=== PATIENT | male | born 1955 | race Caucasian/White ===

== ENCOUNTER 2018-02-28 02:11 | Outpatient (CLI) | payer MEDICARE, MEDICAID, SELFPAY ==
[2018-02-28 11:15] LABS: Absolute Basophil Count 0.04 k/cumm (0.0-0.2); Absolute Eosinophil Count 0.11 k/cumm (0.0-0.7); Absolute Lymphocyte Count 1.34 k/cumm (1.2-3.4); Absolute Monocyte Count 0.47 k/cumm (0.11-0.7); Absolute Neutrophil Count 2.49 k/cumm (1.2-6.7); Basophils % 0.9; Eosinophils % 2.5; HCT 44.3 % (40.0-50.0); HGB 15.5 g/dL (13.5-17.5); Lymphocytes % 30.1; Mean Corpuscular Hemoglobin 32.7 pg (27.0-33.0); Mean Corpuscular Volume 93.5 fL (80-95); Mean Platelet Volume 9.8 fL (8.0-11.0); Monocytes % 10.6; Neutrophils % 55.9; Platelet Count 137 x1000/uL (130-400); RBC 4.74 m/cumm (4.50-6.00); RBC Distribution Width 13.4 % (11.8-14.1); White Blood Cell Count 4.45 k/cumm (4.4-10.8)
[2018-02-28 11:29] LABS: ALT 25 U/L (12-78); AST 17 U/L (15-37); Alkaline Phosphatase 88 U/L (46-116); Anion Gap 7.8 mmol/L (3-11); BUN 17 mg/dL (7-18); Bilirubin, Total 0.6 mg/dL (0.2-1.0); CO2 30.2 mmol/L (21.0-32.0); CREATININE 0.85 mg/dL (0.70-1.30); Calcium 9.4 mg/dL (8.5-10.1); Chloride 103 mmol/L (98-107); Glucose 88 mg/dL (70-100); Potassium 4.9 mmol/L (3.5-5.1); Sodium 141 mmol/L (136-145); Total Protein 7.3 g/dL (6.4-8.2)
== END 2018-02-28 02:31 ==
PROVIDERS: PCP Internal Medicine; Visit Provider Internal Medicine
DX: K35.80 Unspecified acute appendicitis (principal); E78.5 Hyperlipidemia, unspecified; Z86.19 Personal history of other infectious and parasitic diseases
CPT/HCPCS: 36415; 80053; 85025

== ENCOUNTER 2018-03-11 08:20 | Day surgery (SDC) | payer MEDICARE, MEDICAID, SELFPAY ==
--- NOTE | 2018-03-09 08:54 | POEE_ITS ---
History of Present Illness Chief Complaint: Progressive decreased vision, left eye Narrative: The patient is a 62-year old male who presented with complaints of progressive decreased vision in his left eye. This has been progressive over the past month, with significant difficulty with glare. On examination he was noted to have moderate nuclear and posterior subcapsular cataract of the left eye with best corrected vision of 20/50. The option of cataract surgery was offered to the patient and he wished to proceed. NOTE: The Chief Complaint, HPI, Past Medical History, Past Surgical History, Family History, Social History, Medications, and complete Ophthalmic Exam with detailed Assessment and Plan have already been documented in the patient's outpatient ophthalmic record and are not covered again in detail here. PFSH Family History Mother Depression Neoplasm Father Heart disease Hyperlipidemia Brother Depression Brother Diabetes Alcohol abuse Depression Medical History Nuclear sclerotic cataract of left eye (Acute) Posterior subcapsular age-related cataract of left eye (Acute) Social History household members: other details: SELF pets and animals: Yes pets and animals: dog(s) frequency: 5-6 times per week duration: 60-90 minutes/day Smoking/Tobacco Use Status: Former Tobacco Use alcohol intake: never substance use type: does not use chirag/confucianist: Gnosticist Surgical History Appendectomy (06/12/16) Meds Home Medications Medication Instructions Recorded Confirmed Type Unknown [No Known Home Meds] 02/27/18 02/27/18 History Allergies Allergy/AdvReac Type Severity Reaction Status Date / Time Penicillins Allergy Intermediate Unverified 03/06/18 14:43 Exam OCULAR EXAM:: Visual acuity at distance: Corrected to 20/20 right eye, 20/50 left eye. Pupils: Pupils equal, round, and reactive without afferent pupillary defect IOP: 10 OU Extraocular Motility: Normal Pertinent Slit Lamp Findings: Significant for pupils dilating to 7 mm OU. 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 A 2+ nuclear cataract is present OU. Trace posterior subcapsular cataract OD. 2+ posterior subcapsular cataract OS Dilated Funduscopic Examination: Disc cupping is 0.1 OU with drusen and irregularity. The retinal vasculature is normal. The optic nerves have good perfusion and normal color. The retinal vasculature is normal without significant tortuosity or abnormality. The maculas are normal in appearance with normal contour and foveal reflex appropriate for age. The peripheral retina and vitreous are normal. BRIGHTNESS ACUITY TESTING (BAT):: Off left eye 20/50 Low: 20/60 Medium: 20/40 High: 20/125 Assessment and Plan (1) Posterior subcapsular age-related cataract of left eye: Current visit: No Status: Acute Assessment: Visually significant cataract, left eye. Plan: Cataract extraction with intraocular lens implantation, left eye (2) Nuclear sclerotic cataract of left eye: Current visit: No Status: Acute Assessment: Visually significant cataract, left eye. Plan: Cataract extraction with intraocular lens implantation, left eye Note: NOTE:: The details of the planned surgery, including the risks, indications, limitations,expectations,outcome and possible complications were explained to the patient. The patient understands the complications including, but not limited to: infection, hemorrhage, posterior dislocation of the lens or nuclear fragments which may require the intervention of a vitreoretinal surgeon, possible loss of the eye, or from anesthetic complications. The patient has been made aware of the option of not having surgery, that vision following surgery may not be equal to that prior to surgery, and that the planned surgery may not achieve the intended results. Following this discussion, which the patient appeared to understand, the patient wishes to proceed with cataract surgery with lens implantation of the affected eye to improve and maximize vision.
[2018-03-11 08:43] VITALS: BP 157/88; PULSE 66; RESP 16; TEMP 35.6; O2SAT 99
[2018-03-11] MEDS: Lidocaine 2% Jelly 6 ML SYR (10:30)
[2018-03-11] MEDS: Povidone-Iodine Ophth 30 ML BTL ×2 (10:30→10:53)
[2018-03-11] MEDS: Lidocaine 2% Pres-Free 5 ML VIAL (10:34)
[2018-03-11] MEDS: Balanced Salt Soln.-PLUS 500 ML BAG (10:35)
--- NOTE | 2018-03-11 10:58 | W.PM.DSUDISC ---
Discharge Plan Discharge Details Attending Provider: Caleb Peres Primary Care Provider: Noemi Walden Home Meds and New Rx's Prescriptions: No Action No Known Home Meds RF: 0 Discharge Instructions Stand Alone Forms: Post-op Topical Cataract, Chela Spivey (DSU) DS: Diagnosis Discharge Diagnosis (1) Posterior subcapsular age-related cataract of left eye: Status: Resolved (2) Nuclear sclerotic cataract of left eye: Status: Resolved (3) Status post cataract extraction and insertion of intraocular lens of left eye: Status: Acute
--- NOTE | 2018-03-11 10:59 | W.PM.OP ---
Date of service: 03/11/18 Time of Service: 10:59 Operative Note DATE OF PROCEDURE: 03/11/18 PRE-OP DIAGNOSIS: Cataract, left eye POST-OP DIAGNOSIS: same PROCEDURE: Cataract extraction using phacoemulsification with intraocular lens implant, left eye SURGEON: Caleb Peres ANESTHESIA: MAC and local (sub-tenon's anesthetic infiltration) PATHOLOGY: none sent COMPLICATIONS: None Patient was transported to: same day Patient's condition: stable Implants: Richie and Richie Vision / [employer] Tecnis [id number] Indications: Progressive decreased vision due to cataract, left eye Procedure Description: CATARACT SURGERY OPERATIVE REPORT PREOPERATIVE DIAGNOSIS: Nuclear/cortical/posterior subcapsular cataract, left eye, symptomatic POSTOPERATIVE DIAGNOSIS: Same OPERATION: Cataract extraction using phacoemulsification with posterior chamber intraocular lens implant, left eye. IOL: IOL Administrative Resident/Model: J[employer]J Vision / KAIT Tecnis ZCB00 IOL Power: + 21.0 diopters IOL Serial Number: [id number] Optic Diameter: 6.0mm Haptic/Overall Diameter: 13.0mm PHACO INFO: [employer] Solutionsurion Vision System with OZil and Active Fluidics Cumulative Dispersed Energy (CDE): 8.92 seconds SURGEON: Caleb Peres MD, JERALD ANESTHESIA: Monitored Anesthesia Care (MAC), with local sub-tenon's anesthetic infiltration COMPLICATIONS: None SPECIMENS: None INDICATIONS FOR PROCEDURE: The patient is a 62-year-old gentleman with history of optic disc drusen who has developed progressive decreased vision in his left eye. He was noted to have significant nuclear cortical and posterior subcapsular cataract with best corrected vision of 20/50 in the left eye. The option of cataract surgery was offered to the patient and he wished to proceed. PROCEDURE: The correct surgical eye was identified and marked as the left eye and the pupil was dilated in the preoperative area using mydriatics, cycloplegics, and NSAIDS (except in aspirin allergic patients). The dilated pupil size was 8.0 mm. Oral sedation was administered in the form of an Imprimis MKO Melt (midazolam 3mg/ketamine 25mg/ondansetron 2mg) x 2. The patient was brought to the operating room where cardiopulmonary monitoring was instituted and surgical time-out was performed, confirming the correct operative eye and IOL power. Topical anesthesia was administered and ophthalmic povidone-iodine 5% was instilled into the conjunctival fornices. Lidocaine gel was applied to the cornea and the iron-ocular area was prepped with Betadine 10% solution and draped in the usual sterile fashion for intraocular surgery. Steri-strips were used to cover the lashes and lid margins and an adhesive eye drape was placed. Care was taken to isolate the lashes and lid margins under the Steri-strips and adhesive eye drape. A lid speculum was placed between the lids of the operative eye and the Oliver-Liane operating microscope was maneuvered into position. Cuauhtemoc scissors were then used to make a conjunctival buttonhole approximately 6mm posterior to the limbus in the inferonasal quadrant. Blunt dissection was carried out to expose bare sclera, and a blunt-tipped sub-tenon?s anesthesia cannula was introduced and passed posteriorly along the globe where non-preserved plain lidocaine was injected into posterior sub-Tenon?s space. A sideport knife was used to make a paracentesis port at the 12:00 postion and the anterior chamber was filled with Healon GV. A 2.4mm keratome knife was used to create a half-thickness groove at the limbus and then to construct a three-plane near-clear corneal tunnel extending 2.0mm into clear cornea at the 3:00 position. A flap was raised on the anterior capsule and capsulorhexis forceps were used to complete a continuous curvilinear capsulorhexis of 6.0 mm. Balanced salt solution was then used to perform cortical cleaving hydrodissection and nuclear hydrodelineation until the lens could be freely rotated within the capsular bag. The lens nucleus was then disassembled and removed within the capsular bag and iris plane using phacoemulsification. Residual cortical material was removed using the 45-degree angled silicone I/A tip with 0.3mm port. The posterior capsule was carefully polished to remove as much residual lens epithelial cells as safely possible. The capsular bag was then inflated and the anterior chamber deepened with viscoelastic. The lens implant described above was inserted into the capsular bag using the KAIT Seibert Injector. A Kuglen hook was used to dial the IOL into position. Residual viscoelastic was then removed first from posterior to the IOL, then from the anterior chamber using the I/A handpiece. The lens implant was noted to center nicely within the capsular bag. The incisions were stromally hydrated, and the anterior chamber was reformed using BSS. Then 0.4cc of moxifloxacin 1.5mg/ml were injected into the capsular bag and anterior chamber. The incisions were checked with a Weck spear and found to be secure. Several drops of ophthalmic povidone-iodine 5% were then applied to the eye followed by two drops of Imprimis combination moxifloxacin/dexamethasone solution. The drapes were removed and a clear plastic protective eye shield was placed over the eye. The patient was then returned to Same Day Surgery in stable condition.
[2018-03-11 11:20] VITALS: BP 124/76; PULSE 70; RESP 16; TEMP 35.8; O2SAT 93
== END 2018-03-11 11:35 | disposition home or self-care (01) ==
LOC: SUR 08:20
PROVIDERS: PCP Internal Medicine; Visit Provider Ophthalmology
PROC: (CPT 66984; principal; 2018-03-11 11:30)
DX: H25.812 Combined forms of age-related cataract, left eye (principal); I10 Essential (primary) hypertension
CPT/HCPCS: 66984; V2632

== ENCOUNTER 2018-03-25 08:10 | Day surgery (SDC) | payer MEDICARE, MEDICAID, SELFPAY ==
--- NOTE | 2018-03-24 11:14 | W.PIPPEYE ---
History of Present Illness Chief Complaint: Progressive decreased vision, right eye Narrative: The patient is a 62-year-old male with history of progressive decreased vision in both eyes at both distance and near, left eye worse than right. He notes significant difficulty with glare. He has a history of optic disc drusen. On examination he was noted to have moderate bilateral nuclear cataracts with mild posterior subcapsular cataract of the right eye. A 2+ posterior subcapsular cataract of the left eye was present. He underwent cataract surgery in the left eye on 03/11/2018. Postoperatively, he has regained uncorrected visual acuity of 20/20 in the left eye. He now presents for cataract surgery in the right eye. NOTE: The Chief Complaint, HPI, Past Medical History, Past Surgical History, Family History, Social History, Medications, and complete Ophthalmic Exam with detailed Assessment and Plan have already been documented in the patient's outpatient ophthalmic record and are not covered again in detail here. 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, left eye (Chronic) Social History household members: other details: SELF pets and animals: Yes pets and animals: dog(s) frequency: 5-6 times per week duration: 60-90 minutes/day Smoking/Tobacco Use Status: Former Tobacco Use alcohol intake: never substance use type: does not use chirag/gnosticist: Zoroastrianism Surgical History Status post cataract extraction and insertion of intraocular lens of left eye (Chronic 03/11/18) Appendectomy (06/12/16) Meds Allergies Allergy/AdvReac Type Severity Reaction Status Date / Time Penicillins Allergy Intermediate Unverified 03/11/18 08:41 Exam OCULAR EXAM:: Visual acuity at distance: Corrected visual acuity 20/20 right eye, 20/20 left eye. Pupils: Pupils equal, round, and reactive without afferent pupillary defect IOP: 10 OU Extraocular Motility: Normal Pertinent Slit Lamp Findings: Significant for corneal verticillata OU. Pupils dilate to 7 mm OU. 2+ nuclear cataract with trace posterior subcapsular cataract OD. In the left eye, there is a well-positioned PCIOL with trace residual posterior subcapsular haze. Dilated Funduscopic Examination: Disc cupping is 0.1 OU with an irregular margin and buried drusen. The optic disc color is normal. The optic nerves have good perfusion and normal color. The retinal vasculature is normal without significant tortuosity or abnormality. The maculas are normal in appearance with normal contour and foveal reflex appropriate for age. The peripheral retina and vitreous are normal. BRIGHTNESS ACUITY TESTING (BAT):: Off right eye 20/20 Low: 20/20 Medium: 20/20 High: 20/20 Assessment and Plan (1) Posterior subcapsular age-related cataract, right eye: Current visit: No Status: Acute Assessment: Visually significant cataract, right eye. Plan: Cataract extraction with intraocular lens implantation, right eye (2) Nuclear sclerotic cataract of right eye: Current visit: No Status: Acute Assessment: Visually significant cataract, right eye. Plan: Cataract extraction with intraocular lens implantation, right eye Note: NOTE:: The details of the planned surgery, including the risks, indications,limitations,expectations,outcome and possible complications were explained to the patient. The patient understands the complications including, but not limited to: infection, hemorrhage, posterior dislocation of the lens or nuclear fragments which may require the intervention of a vitreoretinal surgeon, possible loss of the eye, or from anesthetic complications. The patient has been made aware of the option of not having surgery, that vision following surgery may not be equal to that prior to surgery, and that the planned surgery may not achieve the intended results. Following this discussion, which the patient appeared to understand, the patient wishes to proceed with cataract surgery with lens implantation of the affected eye to improve and maximize vision.
--- NOTE | 2018-03-24 11:23 | POEE_ITS ---
History of Present Illness Chief Complaint: Progressive decreased vision, right eye Narrative: The patient is a 62-year-old male with history of progressive decreased vision in both eyes at both distance and near, left eye worse than right. He notes significant difficulty with glare. He has a history of optic disc drusen. On examination he was noted to have moderate bilateral nuclear cataracts with mild posterior subcapsular cataract of the right eye. A 2+ posterior subcapsular cataract of the left eye was present. He underwent cataract surgery in the left eye on 03/11/2018. Postoperatively, he has regained uncorrected visual acuity of 20/20 in the left eye. He now presents for cataract surgery in the right eye. NOTE: The Chief Complaint, HPI, Past Medical History, Past Surgical History, Family History, Social History, Medications, and complete Ophthalmic Exam with detailed Assessment and Plan have already been documented in the patient's outpatient ophthalmic record and are not covered again in detail here. 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, left eye (Chronic) Social History household members: other details: SELF pets and animals: Yes pets and animals: dog(s) frequency: 5-6 times per week duration: 60-90 minutes/day Smoking/Tobacco Use Status: Former Tobacco Use alcohol intake: never substance use type: does not use chirag/jain: Hindu Surgical History Status post cataract extraction and insertion of intraocular lens of left eye ( Chronic 03/11/18) Appendectomy (06/12/16) Meds Allergies Allergy/AdvReac Type Severity Reaction Status Date / Time Penicillins Allergy Intermediate Unverified 03/11/18 08:41 Exam OCULAR EXAM:: Visual acuity at distance: Corrected visual acuity 20/20 right eye , 20/20 left eye. Pupils: Pupils equal, round, and reactive without afferent pupillary defect IOP: 10 OU Extraocular Motility: Normal Pertinent Slit Lamp Findings: Significant for corneal verticillata OU. Pupils dilate to 7 mm OU. 2+ nuclear cataract with trace posterior subcapsular cataract OD. In the left eye, there is a well-positioned PCIOL with trace residual posterior subcapsular haze. Dilated Funduscopic Examination: Disc cupping is 0.1 OU with an irregular margin and buried drusen. The optic disc color is normal. The optic nerves have good perfusion and normal color. The retinal vasculature is normal without significant tortuosity or abnormality. The maculas are normal in appearance with normal contour and foveal reflex appropriate for age. The peripheral retina and vitreous are normal. BRIGHTNESS ACUITY TESTING (BAT):: Off right eye 20/20 Low: 20/20 Medium: 20/20 High: 20/20 Assessment and Plan (1) Posterior subcapsular age-related cataract, right eye: Current visit: No Status: Acute Assessment: Visually significant cataract, right eye. Plan: Cataract extraction with intraocular lens implantation, right eye (2) Nuclear sclerotic cataract of right eye: Current visit: No Status: Acute Assessment: Visually significant cataract, right eye. Plan: Cataract extraction with intraocular lens implantation, right eye Note: NOTE:: The details of the planned surgery, including the risks, indications, limitations,expectations,outcome and possible complications were explained to the patient. The patient understands the complications including, but not limited to: infection, hemorrhage, posterior dislocation of the lens or nuclear fragments which may require the intervention of a vitreoretinal surgeon, possible loss of the eye, or from anesthetic complications. The patient has been made aware of the option of not having surgery, that vision following surgery may not be equal to that prior to surgery, and that the planned surgery may not achieve the intended results. Following this discussion, which the patient appeared to understand, the patient wishes to proceed with cataract surgery with lens implantation of the affected eye to improve and maximize vision.
[2018-03-25 08:45] VITALS: BP 135/85; PULSE 56; RESP 17; TEMP 36.5; O2SAT 97
--- NOTE | 2018-03-25 09:47 | W.PM.DSUDISC ---
Discharge Plan Discharge Details Attending Provider: Caleb Peres Primary Care Provider: Noemi Walden Discharge Instructions Stand Alone Forms: Post-op Topical Cataract, Chela Spivey (DSU) DS: Diagnosis Discharge Diagnosis (1) Posterior subcapsular age-related cataract, right eye: Status: Resolved (2) Nuclear sclerotic cataract of right eye: Status: Resolved (3) Status post cataract extraction and insertion of intraocular lens of right eye: Status: Chronic
[2018-03-25] MEDS: Lidocaine 2% Jelly 6 ML SYR (10:06)
[2018-03-25] MEDS: Balanced Salt Soln.-PLUS 500 ML BAG (10:10)
[2018-03-25] MEDS: Lidocaine 1% Pres-Free 5 ML VIAL (10:10)
[2018-03-25] MEDS: Povidone-Iodine Ophth 30 ML BTL (10:29)
--- NOTE | 2018-03-25 10:35 | W.PM.OP ---
Date of service: 03/25/18 Time of Service: 10:35 Operative Note DATE OF PROCEDURE: 03/25/18 PRE-OP DIAGNOSIS: Cataract, right eye POST-OP DIAGNOSIS: same SURGEON: Caleb Peres ANESTHESIA: MAC and local (sub-tenon's anesthetic infiltration) PATHOLOGY: none sent COMPLICATIONS: None Patient was transported to: same day Patient's condition: stable Implants: Richie [employer] Richie Vision / [employer] Tecnis ZCB00 Indications: Progressive decreased vision due to cataract, right eye Procedure Description: CATARACT SURGERY OPERATIVE REPORT PREOPERATIVE DIAGNOSIS: Nuclear/cortical cataract, right POSTOPERATIVE DIAGNOSIS: Same OPERATION: Cataract extraction using phacoemulsification with posterior chamber intraocular lens implant, right eye. IOL: IOL Guide Visitor/Model: J[employer]J Vision / KAIT Tecnis ZCB00 IOL Power: +21.0 diopters IOL Serial Number: [id number] Optic Diameter: 6.0mm Haptic/Overall Diameter: 13.0mm PHACO INFO: [employer] Vision System with OZil and Active Fluidics Cumulative Dispersed Energy (CDE): 5.12 seconds SURGEON: Caleb Peres MD, JERALD ANESTHESIA: Monitored Anesthesia Care (MAC), with local sub-tenon's anesthetic infiltration COMPLICATIONS: None SPECIMENS: None INDICATIONS FOR PROCEDURE: The patient is a 62-year-old male with history of optic disc drusen who developed bilateral nuclear and posterior subcapsular cataract. He has already undergone cataract surgery in the left eye and is doing well postoperatively. He now presents for cataract surgery of the right eye. PROCEDURE: The correct surgical eye was identified and marked as the right eye and the pupil was dilated in the preoperative area using mydriatics, cycloplegics, and NSAIDS (except in aspirin allergic patients). The dilated pupil size was 8.0 mm. Oral sedation was administered in the form of an Imprimis MKO Melt (midazolam 3mg/ketamine 25mg/ondansetron 2mg). The patient was brought to the operating room where cardiopulmonary monitoring was instituted and surgical time-out was performed, confirming the correct operative eye and IOL power. Topical anesthesia was administered and ophthalmic povidone-iodine 5% was instilled into the conjunctival fornices. Lidocaine gel was applied to the cornea and the iron-ocular area was prepped with Betadine 10% solution and draped in the usual sterile fashion for intraocular surgery. Steri-strips were used to cover the lashes and lid margins and an adhesive eye drape was placed. Care was taken to isolate the lashes and lid margins under the Steri-strips and adhesive eye drape. A lid speculum was placed between the lids of the operative eye and the Oliver-Liane operating microscope was maneuvered into position. Cuauhtemoc scissors were then used to make a conjunctival buttonhole approximately 6mm posterior to the limbus in the inferonasal quadrant. Blunt dissection was carried out to expose bare sclera, and a blunt-tipped sub-tenon?s anesthesia cannula was introduced and passed posteriorly along the globe where non-preserved plain lidocaine was injected into posterior sub-Tenon?s space. A sideport knife was used to make a paracentesis port at the 7:00 postion and the anterior chamber was filled with Healon GV. A 2.4mm keratome knife was used to create a half-thickness groove at the limbus and then to construct a three-plane near-clear corneal tunnel extending 2.0mm into clear cornea at the 10:00 position. A flap was raised on the anterior capsule and capsulorhexis forceps were used to complete a continuous curvilinear capsulorhexis of 5.5 mm. Balanced salt solution was then used to perform cortical cleaving hydrodissection and nuclear hydrodelineation until the lens could be freely rotated within the capsular bag. The lens nucleus was then disassembled and removed within the capsular bag and iris plane using phacoemulsification. Residual cortical material was removed using the 45-degree angled silicone I/A tip with 0.3mm port. The posterior capsule was carefully polished to remove as much residual lens epithelial cells as safely possible. The capsular bag was then inflated and the anterior chamber deepened with viscoelastic. The lens implant described above was inserted into the capsular bag using the KAIT Inupiat Injector. A Kuglen hook was used to dial the IOL into position. Residual viscoelastic was then removed first from posterior to the IOL, then from the anterior chamber using the I/A handpiece. The lens implant was noted to center nicely within the capsular bag. The incisions were stromally hydrated, and the anterior chamber was reformed using BSS. Then 0.4cc of moxifloxacin 1.5mg/ml were injected into the capsular bag and anterior chamber. The incisions were checked with a Weck spear and found to be secure. Several drops of ophthalmic povidone-iodine 5% were then applied to the eye followed by two drops of Imprimis combination moxifloxacin/dexamethasone solution. The drapes were removed and a clear plastic protective eye shield was placed over the eye. The patient was then returned to Same Day Surgery in stable condition.
--- NOTE | 2018-03-25 10:41 | ROE_ITS ---
Date of service: 03/25/18 Time of Service: 10:35 Operative Note DATE OF PROCEDURE: 03/25/18 PRE-OP DIAGNOSIS: Cataract, right eye POST-OP DIAGNOSIS: same SURGEON: Caleb Peres ANESTHESIA: MAC and local (sub-tenon's anesthetic infiltration) PATHOLOGY: none sent COMPLICATIONS: None Patient was transported to: same day Patient's condition: stable Implants: Richie [employer] Richie [employer] / [employer] Tecnis [id number] Indications: Progressive decreased vision due to cataract, right eye Procedure Description: CATARACT SURGERY OPERATIVE REPORT PREOPERATIVE DIAGNOSIS: Nuclear/cortical cataract, right POSTOPERATIVE DIAGNOSIS: Same OPERATION: Cataract extraction using phacoemulsification with posterior chamber intraocular lens implant, right eye. 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 He has already undergone cataract surgery in the left eye and is doing well postoperatively. He now presents for cataract surgery of the right eye. PROCEDURE: The correct surgical eye was identified and marked as the right eye and the pupil was dilated in the preoperative area using mydriatics, cycloplegics, and NSAIDS (except in aspirin allergic patients). The dilated pupil size was 8.0 mm. Oral sedation was administered in the form of an Imprimis MKO Melt (midazolam 3mg/ketamine 25mg/ondansetron 2mg). The patient was brought to the operating room where cardiopulmonary monitoring was instituted and surgical time-out was performed, confirming the correct operative eye and IOL power. Topical anesthesia was administered and ophthalmic povidone-iodine 5% was instilled into the conjunctival fornices. Lidocaine gel was applied to the cornea and the iron-ocular area was prepped with Betadine 10% solution and draped in the usual sterile fashion for intraocular surgery. Steri-strips were used to cover the lashes and lid margins and an adhesive eye drape was placed. Care was taken to isolate the lashes and lid margins under the Steri-strips and adhesive eye drape. A lid speculum was placed between the lids of the operative eye and the Oliver-Liane operating microscope was maneuvered into position. Cuauhtemoc scissors were then used to make a conjunctival buttonhole approximately 6mm posterior to the limbus in the inferonasal quadrant. Blunt dissection was carried out to expose bare sclera, and a blunt-tipped sub-tenon? s anesthesia cannula was introduced and passed posteriorly along the globe where non-preserved plain lidocaine was injected into posterior sub-Tenon?s space. A sideport knife was used to make a paracentesis port at the 7:00 postion and the anterior chamber was filled with Healon GV. A 2.4mm keratome knife was used to create a half-thickness groove at the limbus and then to construct a three-plane near-clear corneal tunnel extending 2.0mm into clear cornea at the 10:00 position. A flap was raised on the anterior capsule and capsulorhexis forceps were used to complete a continuous curvilinear capsulorhexis of 5.5 mm. Balanced salt solution was then used to perform cortical cleaving hydrodissection and nuclear hydrodelineation until the lens could be freely rotated within the capsular bag. The lens nucleus was then disassembled and removed within the capsular bag and iris plane using phacoemulsification. Residual cortical material was removed using the 45-degree angled silicone I/A tip with 0.3mm port. The posterior capsule was carefully polished to remove as much residual lens epithelial cells as safely possible. The capsular bag was then inflated and the anterior chamber deepened with viscoelastic. The lens implant described above was inserted into the capsular bag using the KAIT [place] Injector. A Kuglen hook was used to dial the IOL into position. Residual viscoelastic was then removed first from posterior to the IOL, then from the anterior chamber using the I/A handpiece. The lens implant was noted to center nicely within the capsular bag. The incisions were stromally hydrated , and the anterior chamber was reformed using BSS. Then 0.4cc of moxifloxacin 1.5mg/ml were injected into the capsular bag and anterior chamber. The incisions were checked with a Weck spear and found to be secure. Several drops of ophthalmic povidone-iodine 5% were then applied to the eye followed by two drops of Imprimis combination moxifloxacin/dexamethasone solution. The drapes were removed and a clear plastic protective eye shield was placed over the eye. The patient was then returned to [facility] in stable condition.
[2018-03-25 11:10] VITALS: BP 126/81; PULSE 68; RESP 16; TEMP 36.8; O2SAT 95
== END 2018-03-25 11:24 | disposition home or self-care (01) ==
LOC: SUR 08:11
PROVIDERS: PCP Internal Medicine; Visit Provider Ophthalmology
PROC: (CPT 66984; principal; 2018-03-25 10:30)
DX: H25.811 Combined forms of age-related cataract, right eye (principal); Z98.42 Cataract extraction status, left eye; Z96.1 Presence of intraocular lens; I10 Essential (primary) hypertension
CPT/HCPCS: 66984; V2632

== ENCOUNTER 2018-06-24 16:43 | Emergency (ER) | payer MEDICARE, MEDICAID, SELFPAY ==
[2018-06-24 16:51] VITALS: BP 118/80; PULSE 73; RESP 16; TEMP 37.1
[2018-06-24 16:57] VITALS: RESP 16
--- NOTE | 2018-06-24 16:59 | DI.RAD_ITS ---
SYMPTOMS/DIAGNOSIS: SHORTNESS OF BREATH 1 YEAR, WORSE WHEN FLAT PA AND LATERAL CHEST: Comparison is made with [id number]. The heart size is normal. The aorta is mildly tortuous. The lungs are well inflated and clear. No infiltrate or effusion is seen. No interstitial changes are identified. IMPRESSION: Negative chest x-ray.
--- NOTE | 2018-06-24 17:01 | W.ED.GENAD ---
Discharge Plan Disposition Patient Disposition: HOME Condition: Good Discharge Details Chief Complaint: Chest Pain Clinical Impression: SOB (shortness of breath), Chest pain Reason For Visit: chest pain Primary Care Provider: Noemi Walden ED Provider: César Beckman Home Meds and New Rx's Prescriptions: No Action ibuprofen 400 mg Tablet 400 mg PO .QHS RF: 0 Discharge Instructions Instructions: Chest Pain (ED), Dyspnea (ED) Additional Instructions: Please follow-up for your scheduled outpatient exercise stress test. Please discuss with your primary care provider about formalizing the sleep apnea test that you have had scheduled. If you notice any worsening of your symptoms, or any new symptoms such as vomiting, diarrhea, fever, chills, shortness of breath, chest pain, numbness, weakness, or fainting , please return immediately to the emergency department for reevaluation. Please follow up with your primary care provider as soon as possible for reassessment and reevaluation. As always, it was a pleasure participating in your medical care today. Referrals: Noemi Walden MD [Primary Care Provider] - Medical Decision Making This is a pleasant 62-year-old male who presents for evaluation of chest pain for the last year. It occurs at night it is epigastric in its distribution, no radiation to the arm neck or shoulders. He denies any tearing or sharp sensation. He has associated shortness of breath. Worsened when he lies flat, improved when sitting upright, it is not exertional. He skied today without any pain or problems. He denies any history of PE. Signs and symptoms are clinically inconsistent with aortic dissection or severe aortic aneurysm. We will perform a cardiac workup on this patient to evaluate for an acute ACS process which I feel is very unlikely with the timing of his symptoms. Additionally we will evaluate for any radiologic evidence of acute CHF, for PE. EKG shows no evidence of acute pericarditis. 6:35 PM Laboratory workup has returned, and demonstrates a benign EKG, normal troponin, negative d-dimer, no white count, anemia, or other significant abnormality. Chest x-ray shows no evidence of acute process. Reassessment the patient states that he feels very well and would like to go home. I do think that this is very reasonable. Since his symptoms have been going on for the past year, and there is certainly no acute components currently I do not think that a second troponin is indicated at this time. Because of the patient's age and risk factors in general though I do think it is reasonable to have a routine outpatient exercise stress test. With the patient's low heart score of 2 being in the lowest risk category, especially with his completely reassuring vital signs including no signs of respiratory distress, feel he can be discharged with this stress test and close follow-up with his primary care provider. I have extensively reviewed the treatment plan and discharge instructions with the patient. I have addressed all patient concerns at this time. The patient was made aware of what symptoms to monitor for that would warrant a return to the emergency department. Discussed the plan with the patient, they demonstrate verbal understanding and agreement with our assessment and plan at this time. EKG 16: 53 Rate 73, sinus rhythm, intervals 9, no significant ST elevations or depressions, no T wave inversions except for in lead III. No Q waves. HPI General Date/Time Provider Initiated Documentation: 06/24/18 16:57. HPI Narrative: This is a 62-year-old male with a past medical history of hypertension, high cholesterol, tobacco use, treated hepatitis C, who presents today for evaluation of shortness of breath and epigastric chest pain. The symptoms have been present for the last year. They usually occur at night, they are worse when lying down flat, and improved when sitting upright.. He describes it as a very mild achy-like sensation. Shortness of breath is only associated with those scenarios, it is nonexertional. They usually last an hour or so for these episodes however last night it lasted 3-4 hours which is slightly longer than normal. He does not think it seem to be related to food intake. He performs regular physical activity and denies any shortness of breath or chest pain during these episodes. He in fact went skiing all today and had no symptoms during that. Denies PE risk factors such as recent long car rides, immobilization, recent surgery, prior history of DVT or PE, family history of PE or DVT, morbid obesity, exogenous estrogen and smoking, hemoptysis, history of cancer. Denies any history of cardiac disease but states that he may have a history of cardiac disease with his father. He denies any history of stress test or cardiac catheterization. He denies any other modifying factors at this time. He denies any other complaints. Related Data Home Medications Medication Instructions Recorded Confirmed ibuprofen 400 mg PO .QHS 06/24/18 06/24/18 Allergies Allergy/AdvReac Type Severity Reaction Status Date / Time Penicillins Allergy Intermediate Unverified 06/24/18 17:06 General Stated Complaint: Chest Pain CATRACHITA: 2 Review of Systems Review of Systems All systems reviewed & are unremarkable except as noted in HPI and below PFSH Medical History Nuclear sclerotic cataract of right eye (Resolved) Posterior subcapsular age-related cataract, right eye (Resolved) Surgical History Status post cataract extraction and insertion of intraocular lens of right eye (Chronic) Status post cataract extraction and insertion of intraocular lens of left eye (Chronic 03/11/18) Appendectomy (06/12/16) Family History Mother Depression Neoplasm Father Heart disease Hyperlipidemia Brother Depression Brother Diabetes Alcohol abuse Depression Social History household members: other details: SELF pets and animals: Yes pets and animals: dog(s) frequency: 5-6 times per week duration: 60-90 minutes/day Smoking/Tobacco Use Status: Former Tobacco Use alcohol intake: never substance use type: does not use chirag/jehovah's witness: Taoist Exam Narrative Exam Narrative: 1.Const: Well-nourished, Well-developed, appearing stated age 2.Eyes: PERRL, no conjunctival injection, and symmetrical lids. 3.ENT: Atraumatic external nose and ears. Moist MM. Neck: Symmetric, trachea midline, No thyromegaly. Patient demonstrates good movement of cervical neck. There is no nuchal rigidity, no nuchal tenderness. Patient is able to flex the neck without any difficulty or significant pain. Negative Kernig's and Brudzinski sign. 4.CVS: +S1/S2, No murmurs or gallops. Peripheral pulses 2+ and equal in all extremities. Brisk capillary refill in all extremities. No reproducible chest pain 5.RESP: Unlabored respiratory effort. Clear to auscultation bilaterally. No wheezes rales or rhonchi 6.GI: Soft, Nontender/Nondistended, No hepatosplenomegaly. No guarding or rebound. 7.MSK: Normocephalic/Atraumatic, Extremities w/o deformity or ttp No cyanosis or clubbing, Normal movement of all extremities no tenderness on his calves bilateral 8.Skin: Warm, Dry. No rashes or lesions. 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 Sensation grossly intact, no focal neurologic deficits. All 6 cardinal planes of vision are fully intact. No evidence of rotatory or vertical nystagmus. The patient demonstrated a normal wrwssb-xjtb-enivww, good dexterity. There was no evidence of dysdiadochokinesia. Patient was able to ambulate without difficulty. There was no wide-based gait. Romberg, and loti-fj-arie are both normal on testing. Sensation was intact bilaterally as well as muscle strength bilaterally for all extremities. Patient was able to verbalize butter cup with no slurring, or miss pronunciation. 10.Psych: (AAO) x3. Appropriate mood and affect Course Vital Signs Temperature 37.1 C 06/24/18 16:51 Pulse 73 06/24/18 16:51 Respiratory Rate 16 06/24/18 16:51 Blood Pressure 118/80 06/24/18 16:51 Temperature 37.1 C 06/24/18 16:51 Temperature Source Temporal Artery Scan 06/24/18 16:51 Pulse 73 06/24/18 16:51 Respiratory Rate 16 06/24/18 16:57 Respiratory Effort 06/24/18 16:57 Respiratory Depth Normal 06/24/18 16:57 Blood Pressure 118/80 06/24/18 16:51 Blood Pressure Position Sitting 06/24/18 16:51 Oxygen Delivery Method Room Air 06/24/18 16:51 Oxygen Flow Rate 0 06/24/18 16:51
[2018-06-24] MEDS: Aspirin 81 MG CHEW 324 MG CH (17:05)
[2018-06-24] MEDS: Lidocaine 5% Patch 1 PATCH TP (17:13)
[2018-06-24 17:20] LABS: Abs Immature Grans 0.01 k/cumm (0.0-0.09); Absolute Basophil Count 0.03 k/cumm (0.0-0.2); Absolute Eosinophil Count 0.13 k/cumm (0.0-0.7); Absolute Lymphocyte Count 1.21 k/cumm (1.2-3.4); Absolute Monocyte Count 0.44 k/cumm (0.11-0.7); Absolute Neutrophil Count 4.13 k/cumm (1.2-6.7); Basophils % 0.5; Eosinophils % 2.2; HGB 14.9 g/dL (13.5-17.5); Immature Grans % 0.2; Lymphocytes % 20.3; Mean Corp. HGB Concentration 36.3 g/dL (32.0-36.0); Mean Corpuscular Hemoglobin 33.7 pg (27.0-33.0); Mean Corpuscular Volume 92.8 fL (80-95); Mean Platelet Volume 9.4 fL (8.0-11.0); Monocytes % 7.4; Neutrophils % 69.4; Platelet Count 137 x1000/uL (130-400); RBC 4.42 m/cumm (4.50-6.00); RBC Distribution Width 13.1 % (11.8-14.1); White Blood Cell Count 5.95 k/cumm (4.4-10.8)
[2018-06-24 17:23] LABS: ALT 21 U/L (12-78); AST 18 U/L (15-37); Albumin 4.1 g/dL (3.4-5.0); Alkaline Phosphatase 82 U/L (46-116); Anion Gap 9.5 mmol/L (3-11); BUN 20 mg/dL (7-18); Bilirubin, Total 0.6 mg/dL (0.2-1.0); CO2 28.5 mmol/L (21.0-32.0); Calcium 9.1 mg/dL (8.5-10.1); Chloride 106 mmol/L (98-107); Glucose 100 mg/dL (70-100); Potassium 3.8 mmol/L (3.5-5.1); Sodium 144 mmol/L (136-145); Total Protein 7.7 g/dL (6.4-8.2)
[2018-06-24 17:28] LABS: Troponin I < 0.02 ng/mL (0.00-0.06)
[2018-06-24 17:31] LABS: Lipase 156 U/L (73-393)
--- NOTE | 2018-06-24 17:36 | DI.VRAD_ITS ---
EXAM: XR Chest, 2 Views EXAM DATE/TIME: 06/24/2018 5:01 PM CLINICAL HISTORY: 62 years old, male; Signs and symptoms; Other: SOB 1 year, worse when flat TECHNIQUE: XR of the chest, 2 views. COMPARISON: CR ABD FLAT UPRIGHT PA CHEST 06/12/2016 3:52 AM FINDINGS: Lungs: Hyperexpanded lung nevarez consistent with COPD Pleural space: Unremarkable. No pleural effusion. No pneumothorax. Heart/Mediastinum: Unremarkable. No cardiomegaly. Bones/joints: Stable IMPRESSION: Hyperexpanded lung nevarez consistent with COPD. No focal opacity Dictated and Authenticated by: Benjamin Reddy MD. Ordering:KARINA Lindsey MD
[2018-06-24 18:28] LABS: D-Dimer 415 ng/mlFEU (<500)
[2018-06-24 18:44] VITALS: BP 142/88; PULSE 72; RESP 17; TEMP 36.8; O2SAT 96
--- NOTE | 2018-06-25 08:10 | PDOC.ERCMPRO ---
Care Management Progress Note 06/25-Dr. Beckman ordered stress test for Alexis. Order sent to diagnostic imaging. This CM called DI and spoke with Catarino. Catarino states they have received the order and will schedule.
== END 2018-06-24 19:44 | disposition home or self-care (01) ==
PROVIDERS: Emergency Provider Student in an Organized Health Care Education/Training Program; PCP Internal Medicine
DX: R06.02 Shortness of breath (principal); R07.9 Chest pain, unspecified
CPT/HCPCS: 36415; 80053; 83690; 93005; 99285; 71046; 84484; 85025; 85379; 93010

== ENCOUNTER 2018-08-16 07:00 | Outpatient (CLI) | payer MEDICARE, MEDICAID, SELFPAY ==
--- NOTE | 2018-08-16 13:00 | ETT_ITS ---
*[facility]* *[facility]* [address] [place] [address] Stress Electrocardiography Nader protocol Date of study: 08/16/2018 *PATIENT PRESENTATION* Height: 177.8cm (70in) Blood Pressure: Weight: 87.3kg (192lb) BSA: 2.09m^2 Referring physician: César Beckman Ordering physician: César Beckman Impressions: Normal study after maximal exercise. Summary: 1. Stress ECG conclusions: Torres treadmill score: 11. This score predicts a low risk of cardiac events. 2. Stress: The target heart rate was achieved. Indication: R07.9. History: REASON FOR TESTING: OVER THE LAST 3 YEARS PATIENT HAS HAD INTERMITTENT EPISODES OF PAIN (FEELS LIKE A BRUISE) (5/10 AT ITS WORST) UNDER THE RIB CAGE BILATERALLY, GREATER ON THE LEFT SIDE. THESE EPISODES HAPPEN MORE SO WITH VIGOROUSLY ACTIVITY AND OCCASIONALLY AT REST. THE MORE I DO THE MORE IT HURTS. HE STATES RESTING AND LYING DOWN RELIEVES THE PAIN, WHICH MAY LAST UP TO ONE HOUR. PATIENT DENIES CHEST PAIN PRESSURE UPON ARRIVAL TO TESTING TODAY. SIGNIFICANT PAST MEDICAL HISTORY: SMOKING STATUS: QUIT 1999. SMOKED FOR 10 YEARS OF AND ON, 1 PPD. 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 Risk factors: Family history of coronary artery disease. Dyslipidemia. Cholesterol: 228mg/dl. HDL: 41mg/dl. LDL: 150mg/dl. Triglycerides: 197mg/dl. ALLERGIES: PENICILLIN. MEDICATIONS: IBUPROFEN 400 MG PRN. Protocol: Nader protocol. Baseline ECG: SINUS RHYTHM. 63 BPM. Stress protocol: + +---+ + !Stage !HR !BP (mmHg) ! + +---+ + !Baseline supine !63 !122/84 (97) ! + +---+ + !Baseline standing !60 !140/90 (107)! + +---+ + !Stage I; 1.7mph, 10degrees; 3 min !113!160/84 (109)! + +---+ + !Stage II; 2.5mph, 12degrees; 3 min !132!180/80 (113)! + +---+ + !Stage III; 3.4mph, 14degrees; 3 min!145!180/80 (113)! + +---+ + !Recovery; 1 min !103!170/76 (107)! + +---+ + !Recovery; 3 min !77 !150/80 (103)! + +---+ + !Recovery; 6 min !79 !130/80 (97) ! + +---+ + * Stress results: Maximal heart rate during stress was 150bpm (94% of maximal predicted heart rate). The maximal predicted heart rate was 159bpm. The target heart rate was achieved. The rate-pressure product for the peak heart rate and blood pressure was 06066hc Hg/min. Stress ECG: TREADMILL PORTION OF STRESS TEST ENDED IN 9 MINUTES 23 SECONDS DUE TO FATIGUE. NORMAL HEART RATE AND BLOOD PRESSURE RESPONSE TO EXERCISE MAX HR = 150. 94 % OF TARGET ACHEIVED. NO ECTOPY. APPROXIMATE METS ACHIEVED = 10.75. NO ANGINA. NO SIGNIFICANT ST SEGMENT CHANGES. FUNCTIONAL CAPACITY = AVERAGE. Torres treadmill score: 11. This score predicts a low risk of cardiac events. Study data: Heber Medina MD supervised and was readily available during the procedure. This study was interpreted by [facility]. Study status: Routine. Consent: The risks, benefits, and alternatives to the procedure were explained to the patient and informed consent was obtained. Procedure: Initial setup. A baseline ECG was recorded. Surface ECG leads and manual cuff blood pressure measurements were monitored. Heart sounds: Normal. Lung sounds: Normal. Treadmill exercise testing was performed using the Nader protocol. Study completion: The patient tolerated the procedure well and was discharged from the lab. Discharge: The patient left the laboratory in stable condition. Birthdate: Patient birthdate: 1955. Sex: Gender: male. Study date: Study date: 08/16/2018. Study time: 00:01 AM. Signature Documentation: The Stress ECG portion of this study was interpreted by Heber Medina MD. Electronically signed by Heber Medina 08/16/2018 14:40
== END 2018-08-16 07:20 ==
PROVIDERS: PCP Internal Medicine; Visit Provider Student in an Organized Health Care Education/Training Program
DX: R07.9 Chest pain, unspecified (principal); R06.02 Shortness of breath; E78.5 Hyperlipidemia, unspecified; Z87.891 Personal history of nicotine dependence; Z82.49 Family history of ischemic heart disease and other diseases of the circulatory system
CPT/HCPCS: 93016; 93018; 93017

== ENCOUNTER 2019-10-31 10:29 | Outpatient (CLI) | payer MEDICARE, MEDICAID, SELFPAY ==
--- NOTE | 2019-10-31 09:30 | DI.RAD_ITS ---
EXAM: XR HIP RT COMPLETE AP PELVIS INDICATION: chronic hip pain, m25.559. COMPARISON: CR RT HIP COMPLETE AP PELVIS from 08/19/2013 TECHNIQUE: 2D digital imaging was performed. FINDINGS: There is mild narrowing of the right hip joint. Joint is otherwise well maintained. There is deform ity of the proximal right femoral shaft which was present on the prior examination. The left hip is well maintained. The sacroiliac joints and symphysis pubis are intact. The bones are normally train examiner alized. IMPRESSION: DATA REPOSITORY: RADIATION DOSE DELIVERED:
== END 2019-10-31 10:49 ==
PROVIDERS: PCP Nurse Practitioner; Visit Provider Family Medicine
DX: M25.551 Pain in right hip (principal); G89.29 Other chronic pain
CPT/HCPCS: 73502

== ENCOUNTER 2020-02-09 01:51 | Outpatient (CLI) | payer MEDICARE, MEDICAID, SELFPAY ==
[2020-02-09 14:28] LABS: Calculated LDL 135 mg/dL (<100); Cholesterol 236 mg/dL (<200); HDL Cholesterol 45 mg/dL (40-60); Triglyceride 280 mg/dL (<150)
[2020-02-09 22:26] LABS: PSA, Screening 0.5 ng/mL (0.0-4.5)
== END 2020-02-09 02:11 ==
PROVIDERS: PCP Nurse Practitioner; Visit Provider Family Medicine
DX: E78.5 Hyperlipidemia, unspecified (principal); R35.1 Nocturia; N40.1 Benign prostatic hyperplasia with lower urinary tract symptoms; Z12.5 Encounter for screening for malignant neoplasm of prostate
CPT/HCPCS: 36415; 80061; 84153

== ENCOUNTER 2020-08-17 03:52 | Outpatient (CLI) | payer MEDICARE, MEDICAID, SELFPAY ==
[2020-08-17 12:53] LABS: ALT 21 U/L (16-63); AST 14 U/L (15-37); Albumin 4.4 g/dL (3.4-5.0); Alkaline Phosphatase 83 U/L (46-116); Bilirubin, Total 0.8 mg/dL (0.2-1.0); Calculated LDL 144 mg/dL (<100); Cholesterol 221 mg/dL (<200); HDL Cholesterol 41 mg/dL (40-60); Total Protein 7.5 g/dL (6.4-8.2); Triglyceride 184 mg/dL (<150)
[2020-08-17 12:54] LABS: Hemoglobin A1C 5.5 % (<5.7)
[2020-08-17 13:26] LABS: Bilirubin, Direct 0.2 mg/dL (0.0-0.2)
== END 2020-08-17 03:53 | disposition home or self-care (01) ==
PROVIDERS: PCP Nurse Practitioner; Visit Provider Nurse Practitioner
DX: R73.03 Prediabetes (principal); E78.5 Hyperlipidemia, unspecified; B19.20 Unspecified viral hepatitis C without hepatic coma
CPT/HCPCS: 36415; 80061; 80076; 83036

== ENCOUNTER 2020-08-24 02:58 | Outpatient (CLI) | payer MEDICARE, MEDICAID, SELFPAY ==
[2020-08-25 18:00] LABS: COVID-19 RT-PCR UVMMC Result Negative (Negative)
== END 2020-08-24 02:59 | disposition home or self-care (01) ==
LOC: LBO 02:59
PROVIDERS: PCP Nurse Practitioner; Visit Provider Nurse Practitioner
DX: Z20.822 Contact with and (suspected) exposure to COVID-19 (principal)
CPT/HCPCS: U0003; U0005

== ENCOUNTER 2020-09-15 10:31 | Outpatient (CLI) | payer MEDICARE, MEDICAID, SELFPAY ==
[2020-09-15 12:53] LABS: ALT 36 U/L (16-63); AST 21 U/L (15-37); Albumin 4.5 g/dL (3.4-5.0); Alkaline Phosphatase 76 U/L (46-116); Bilirubin, Direct 0.2 mg/dL (0.0-0.2); Bilirubin, Total 0.8 mg/dL (0.2-1.0); Total Protein 7.4 g/dL (6.4-8.2)
== END 2020-09-15 10:32 | disposition home or self-care (01) ==
PROVIDERS: PCP Nurse Practitioner; Visit Provider Nurse Practitioner Family
DX: B19.20 Unspecified viral hepatitis C without hepatic coma (principal)
CPT/HCPCS: 36415; 80076

== ENCOUNTER 2021-01-24 09:59 | Emergency (ER) | payer MEDICARE, MEDICAID, SELFPAY ==
[2021-01-24 10:04] VITALS: BP 156/86; PULSE 67; RESP 14; TEMP 36.6; O2SAT 98
--- NOTE | 2021-01-24 10:29 | W.ED.GENAD ---
Discharge Plan Disposition Patient Disposition: HOME Condition: Stable Discharge Details Clinical Impression: Changes in vision Primary Care Provider: Esther Olson ED Provider: Raphael Howell Home Meds and New Rx's Prescriptions: Continued simvastatin 20 mg tablet 20 mg PO DAILY Qty: 90 RF: 4 Discontinued ibuprofen 400 mg Tablet 400 mg PO .QHS RF: 0 Discharge Instructions Additional Instructions: Go to Dr. Dickey's office at [address] [place] [address]. [place], [place] at 9am tomorrow you likely have a vitreous hemorrhage from your ultrasound exam If you have worsening symptoms or severe pain in the eye return to the emergency department Medical Decision Making 65 yo male with hx of HTN, hld, who takes 2 aspirin nightly per patient comes in with chief complaint of left eye decreased vision since waking yesterday. He states he had some mild itching of the left eye yesterday but none today and states he woke up yesterday with blurred vision and describes seeing a million floating fish and denies flashes of light. He denies fevers and has no trauma to the eye. EOMI, PERRL, conjunctiva normal in both eyes, no periorbital swelling, no pain with eye movements. He has no evidence of scleritis or conjunctivitis. He has no evidence of a corneal abrasion or globe rupture. Denies any symptoms to suggest amaurosis fugax. HE is able to see out of the left eye just ates everything is blurry, did not have loss of vision, though can't see the letters on the vision chart in the left eye when tested, states they are too blurry. On retinal examI do not see any paleness of the retina or mishra red macula to suggest crao and there does not appear to be an optic disc edema or tortuous veins on retinal exam. On bedside u/s there does not appear to be a retinal detachment though does have bright echoes in the posterior chamber and when he moves his eye I do see swirling of hemorrhage consistent with vitreous hemorrhage. He has an opthomalogist in [place], Dr. dickey, will try to touch base with them. Did advise patient he should stop the aspirin as well pt stable. discussed case with Dr. Dickey and he did agree with stopping aspirin and nsaids, and will see him at 9am tomorrow. Pt instructed of this and he understands he needs to return immediately for any new or worsening symptoms Differential Diagnosis Differential Diagnosis: retinal detachment, vitreous hemorrhage, Medical Records Medical records reviewed: Yes I reviewed the patient's medical records. HPI General Mode of arrival: ambulatory. Date/Time Provider Initiated Documentation: 01/24/21 09:59. Limitations to Documentation: no limitations. Information obtained by: patient. History of Present Illness 65 year old M presents to the emergency department with the chief complaint of left eye issue, described as moderate, and it has been constant. No relieving factors improve symptom(s), No exacerbating factors reported . Patient notes no other symptoms.. Patient did receive the following treatments prior to arrival, none Related Data Home Medications Medication Instructions Recorded Confirmed simvastatin 20 mg tablet 20 mg PO DAILY #90 tab 10/14/20 01/24/21 Previous Rx's Medication Instructions Recorded simvastatin 20 mg tablet 20 mg PO DAILY #90 tab 10/14/20 Allergies Allergy/AdvReac Type Severity Reaction Status Date / Time Penicillins Allergy Intermediate Verified 01/24/21 10:07 General Stated Complaint: EyeProblem CATRACHITA: 3 Review of Systems All systems reviewed & are unremarkable except as noted in HPI and below Constitutional Constitutional: Denies chills, Denies fever(s) and Denies weakness Cardiovascular Cardiovascular: Denies chest pain and Denies dyspnea Respiratory Respiratory: Denies cough and Denies dyspnea Gastrointestinal Gastrointestinal: Denies abdominal pain, Denies nausea and Denies vomiting Musculoskeletal Musculoskeletal: Denies joint swelling Neurologic Neurologic: Denies weakness [facility] Medical History (Updated 01/24/21 @ 10:59 by Raphael Howell MD) Depressive disorder panic response Drusen of optic disc, left eye Drusen of optic disc, right eye Heart murmur Hyperlipidemia Nuclear sclerotic cataract of right eye Posterior subcapsular age-related cataract, right eye Seasonal allergies Skin rash Tick bite Surgical History Appendectomy (06/12/16) laparascopic History of hip surgery S/P appendectomy (06/21/16) Status post cataract extraction and insertion of intraocular lens of left eye (03/11/18) Status post cataract extraction and insertion of intraocular lens of right eye Family History Mother Depression Alcohol abuse Cancer Father Heart disease Hyperlipidemia Asthma Cancer Brother Depression Hypertension Brother , age 59 Diabetes Alcohol abuse Depression Social History Smoking/Tobacco Use Status: Former Tobacco Use Smoking risk assessment performed?: Yes Alcohol Intake: former Drug use: Never Substance use type: does not use Caregiver/Support person: No Household members: none Housing: house Do you need help understanding health information?: Never Pets and animals: Yes Pets and animals: dog(s) Do you think of yourself as: straight/heterosexual Current gender identity: male What is your relationship status?: How often do you talk on the phone with friends or family?: three or more times per week How often do you get together with friends or relatives?: twice per week How often do you attend yazidi or episcopalian services?: 1-3 times per year Do you belong to any clubs or organized social groups?: yes Panel score (0-1 are the most socially isolated patients): 2 What type of physical activity do you participate in: walking Duration: 60-90 minutes/day Frequency: 5-6 times per week Belinda/Voodoo: Bahai Special belinda needs: No Seatbelt use: always Drive intox or ride w/intox equipment driver: No Do you feel safe at home: Yes Do you feel safe in your relationship?: Yes Exam Const General: no acute distress Orientation: alert HENMT Head: normal to inspection Ears: external ears normal General nose exam: external nose normal Mouth: moist mucous membranes Eyes General: appearance normal, both eyes and all related structures Neck Neck: normal visual inspection Resp Effort & Inspection: normal respiratory effort and able to speak in complete sentences Cardio Rate: regular rate Skin General skin exam: no rashes or lesions noted Neuro General: patient alert and patient oriented x3 Extrem General: normal to inspection Psych Mental Status: mental status grossly normal Course Vital Signs Vital signs: Vital Signs Temperature 36.6 C 01/24/21 10:04 Pulse 67 01/24/21 10:04 Respiratory Rate 14 01/24/21 10:04 Blood Pressure 156/86 H 01/24/21 10:04 Pulse Oximetry 98 01/24/21 10:04 Temperature 36.6 C 01/24/21 10:04 Temperature Source Skin 01/24/21 10:04 Pulse 67 01/24/21 10:04 Respiratory Rate 14 01/24/21 10:04 Respiratory Effort 01/24/21 10:08 Blood Pressure 156/86 H 01/24/21 10:04 Blood Pressure Position Sitting 01/24/21 10:04 Pulse Oximetry 98 01/24/21 10:04 Oxygen Delivery Method Room Air 01/24/21 10:04 Oxygen Flow Rate 0 01/24/21 10:04 Pain Level 0 01/24/21 10:04
== END 2021-01-24 11:06 | disposition home or self-care (01) ==
PROVIDERS: Emergency Provider Emergency Medicine; PCP Nurse Practitioner
DX: H53.8 Other visual disturbances (principal); H43.12 Vitreous hemorrhage, left eye
CPT/HCPCS: 99283

== ENCOUNTER 2021-02-04 15:05 | Outpatient (CLI) | payer MEDICARE, MEDICAID, SELFPAY ==
[2021-02-04 12:46] LABS: Calculated LDL 68 mg/dL (<100); Cholesterol 136 mg/dL (<200); HDL Cholesterol 44 mg/dL (40-60); Triglyceride 122 mg/dL (<150)
== END 2021-02-04 15:06 | disposition home or self-care (01) ==
LOC: LOS 15:05
PROVIDERS: PCP Nurse Practitioner; Visit Provider Nurse Practitioner Family
DX: E78.5 Hyperlipidemia, unspecified (principal)
CPT/HCPCS: 36415; 80061

== ENCOUNTER 2021-06-17 01:48 | Outpatient (CLI) | payer MEDICARE, MEDICAID, SELFPAY ==
--- NOTE | 2021-06-17 07:15 | DI.US_ITS ---
Exam(s) US ABDOMEN EXAM: US ABDOMEN CLINICAL HISTORY: f/u,VIRAL HEP C,B19.20 TECHNIQUE: Ultrasound abdomen performed using standard protocol. COMPARISON: CT ABD PELVIS WITH CONTRAST from 06/12/2016 FINDINGS: ABDOMINAL AORTA AND IVC: Visualized portions normal caliber. PANCREAS: Normal where visualized. LIVER: Normal. Hepatopedal flow in the Portal Vein. The liver measures 18.2 cm long. GALLBLADDER:No evidence of cholelithiasis. No evidence of wall thickening. No pericholecystic fluid i dentified. There is a 3 mm echogenic focus along the wall of the gallbladder which may represent a po lyp. BILIARY SYSTEM: Common bile duct measures < 7 mm. No intrahepatic biliary ductal dilation. GALEAS'S SIGN: Negative. KIDNEYS: Kidneys are symmetric in size. No evidence of renal calculi. No evidence of hydronephrosis. No renal mass or cyst identified. SPLEEN: Not enlarged. ASCITES: None seen. IMPRESSION: 1. Mild hepatomegaly. 2. 3 mm gallbladder polyp. DATA REPOSITORY:
== END 2021-06-17 02:08 ==
PROVIDERS: PCP Nurse Practitioner; Visit Provider Nurse Practitioner
DX: R16.0 Hepatomegaly, not elsewhere classified (principal); B18.2 Chronic viral hepatitis C; K82.4 Cholesterolosis of gallbladder
CPT/HCPCS: 76700

== ENCOUNTER 2021-06-18 16:58 | Outpatient (REF) | payer MEDICARE, MEDICAID, SELFPAY ==
[2021-06-18 15:12] LABS: Abs Immature Grans 0.01 10^3/uL (0.0-0.06); Absolute Basophil Count 0.04 10^3/uL (0.0-0.2); Absolute Eosinophil Count 0.13 10^3/uL (0.0-0.7); Absolute Lymphocyte Count 1.15 10^3/uL (1.2-3.4); Absolute Monocyte Count 0.44 10^3/uL (0.1-0.8); Absolute Neutrophil Count 3.09 10^3/uL (1.2-6.7); Basophils % 0.8; Eosinophils % 2.7; HGB 15.4 g/dL (13.5-17.5); Immature Grans % 0.2; Lymphocytes % 23.7; MCH 32.6 pg (27.0-33.0); MCHC 34.2 % (32.0-36.0); MCV 95.3 fL (80-95); Monocytes % 9.1; Neutrophils % 63.5; Nucleated RBC 0 %; Platelet Count 151 10^3/uL (130-400); RBC 4.72 10^6/uL (4.36-5.78); RDW 12.7 % (11.8-14.1); RDW-SD 44.5 fL; WBC 4.86 10^3/uL (4.4-10.8)
[2021-06-18 15:23] LABS: BUN 11 mg/dL (7-18); CREATININE 0.9 mg/dL (0.70-1.30); Calcium 9.2 mg/dL (8.5-10.1); Chloride 106 mmol/L (98-107); Glucose 101 mg/dL (74-106); Lipase 80 U/L (73-393); Potassium 4.2 mmol/L (3.5-5.1); Sodium 141 mmol/L (136-145)
== END 2021-06-18 16:59 | disposition home or self-care (01) ==
LOC: LBN 16:58
PROVIDERS: PCP Nurse Practitioner; Visit Provider Physician Assistant
DX: R10.12 Left upper quadrant pain (principal)
CPT/HCPCS: 80048; 83690; 85025

== ENCOUNTER 2021-07-29 01:55 | Outpatient (CLI) | payer MEDICARE, MEDICAID, SELFPAY ==
--- NOTE | 2021-07-29 13:30 | DI.CT_ITS ---
Exam(s) CT ABDOMEN PELVIS WO EXAM: CT ABDOMEN PELVIS WO CLINICAL HISTORY: LUQ and epigastric pain x 3 years,r10.12. TECHNIQUE: Imaging Protocol: Axial computed tomography images with coronal and sagittal reformatted images were created and reviewed CONTRAST MATERIAL: Intravenous: none Oral: Yes COMPARISON: CT ABD PELVIS WITH CONTRAST from 06/12/2016 FINDINGS: VISUALIZED LUNG BASES: There is atelectasis in the lingular segment of the left lung. Mild benign-ap pearing increased markings in the right middle lobe. No pleural effusions.. ABDOMEN: There is no ascites. LIVER: There are no obvious focal hepatic lesions evident of this noninfused study. GALLBLADDER/BILIARY: No obvious gallbladder pathology. CBD is not dilated. PANCREAS: No evidence of pancreatic mass nor dilatation of the pancreatic duct. SPLEEN: Spleen is not enlarged. No obvious intrasplenic lesions. ADRENALS: There are no significant adrenal masses. KIDNEYS:No cysts evident. No solid renal masses. No calculi nor hydronephrosis. . ABDOMINAL AORTA: Abdominal aorta is not enlarged. LYMPH NODES: There is no retroperitoneal nor paraaortic adenopathy. ABDOMINAL WALL: Bilateral fat containing inguinal hernias are again noted, unchanged. GI: There is no evidence of bowel obstruction, free air, nor abscess. PELVIS: LYMPH NODES: There is no intrapelvic nor inguinal adenopathy. GI: The appendix is surgically absent.No evidence of significant sigmoid diverticular disease. URINARY BLADDER: No calculi nor obvious masses evident REPRODUCTIVE: Prostate not enlarged. Seminal vesicles unremarkable. OSSEOUS: No significant osseous lesions. IMPRESSION: 1. Compared to the prior CT scan of 06/12/2016 there has been interval appendectomy. There is no abn ormal fluid collection at the operative site nor elsewhere in the abdomen and pelvis. There is no aleisha wel obstruction. No free air. No ascites. 2. Bilateral fat containing inguinal hernias are again noted. 3. Lung base findings as described above RADIATION DOSE DELIVERED: 860.54mGy.cm Total DLP DATA REPOSITORY: All CT scans at this facility are submitted to the National Radiology Data Registry (NRDR) Dose Index Registry (DIR) with the [employer] (A[employer]). RADIATION OPTIMIZATION: All CT scans at this facility use at least one of these dose optimization te chniques: automated exposure control; mA and/or kV adjustment per patient size (includes targeted exa ms where dose is matched to clinical indication); or iterative reconstruction.
== END 2021-07-29 02:15 ==
PROVIDERS: PCP Nurse Practitioner; Visit Provider Nurse Practitioner
DX: R10.12 Left upper quadrant pain (principal); K40.20 Bilateral inguinal hernia, without obstruction or gangrene, not specified as recurrent
CPT/HCPCS: 74176

== ENCOUNTER → 2021-08-11 08:52 | Outpatient (BNVA) | payer MEDICARE, MEDICAID, SELFPAY | PROVIDERS: PCP Nurse Practitioner; Referring Provider Nurse Practitioner; Visit Provider Physical Therapy Assistant | DX: R10.11 Right upper quadrant pain (principal); R10.12 Left upper quadrant pain | CPT/HCPCS: 99214 ==

== ENCOUNTER 2022-10-09 11:05 | Emergency (ER) | payer MEDICARE, MEDICAID, SELFPAY ==
--- NOTE | 2022-10-09 11:00 | RT.EKG_ITS ---
APPROVED REPORT Exam: Resting ECG Reason for Exam: dizzy Patient Location: E HR:65 bpm ECG Measurements Heart Rate 65 AXIS MA 171 P 38 QRSd 123 QRS 37 QT 445 T 12 QTc 462 Conclusion Sinus rhythm...normal P axis, V-rate 60- 99 Nonspecific intraventricular conduction delay...QRSd >115mS, not LBBB/RBBB
[2022-10-09 11:05] VITALS: BP 158/87; PULSE 60; RESP 18; TEMP 36.4; O2SAT 99
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
[2022-10-09 11:26] VITALS: RESP 16
--- NOTE | 2022-10-09 11:30 | DI.CT_ITS ---
Exam(s) CT HEAD WO EXAM: CT HEAD WO CLINICAL HISTORY: dizziness, headache. TECHNIQUE: Imaging Protocol: Axial computed tomography images with coronal and sagittal reformatted images were created and reviewed COMPARISON: CT HEAD WITHOUT CONTRAST from 09/01/2015 FINDINGS: Ventricles and Extra axial spaces: Normal in size and morphology for the patient's age. Hemorrhage: None. Cerebral parenchyma: There is no acute territorial infarct present. There is a stable 5 mm extra-axi al nodule along the falx most likely reflecting a benign lesion such as a meningioma. Midline shift: None. Brainstem/Cerebellum: Normal. Calvarium: Normal. Visualized Paranasal sinuses/Mastoids: Clear. Soft Tissues: Unremarkable. IMPRESSION: 1. No acute intracranial process. 2. Findings were discussed with the emergency department at 1:50 p.m. on 10/09/2022. RADIATION DOSE DELIVERED: 810.93mGy.cm Total DLP DATA REPOSITORY: All CT scans at this facility are submitted to the National Radiology Data Registry (NRDR) Dose Index Registry (DIR) with the [employer] (ACR). RADIATION OPTIMIZATION: All CT scans at this facility use at least one of these dose optimization te chniques: automated exposure control; mA and/or kV adjustment per patient size (includes targeted exa ms where dose is matched to clinical indication); or iterative reconstruction.
[2022-10-09] MEDS: Normal Saline 1,000 ML 1000 ML IV (11:35)
[2022-10-09 11:40] LABS: Abs Immature Grans 0.02 10^3/uL (0.0-0.06); Absolute Basophil Count 0.04 10^3/uL (0.0-0.2); Absolute Eosinophil Count 0.12 10^3/uL (0.0-0.7); Absolute Lymphocyte Count 1.71 10^3/uL (1.2-3.4); Absolute Monocyte Count 0.54 10^3/uL (0.1-0.8); Absolute Neutrophil Count 3.14 10^3/uL (1.2-6.7); Basophils % 0.7; Eosinophils % 2.2; HGB 15.3 g/dL (13.5-17.5); Immature Grans % 0.4; Lymphocytes % 30.7; MCH 32.3 pg (27.0-33.0); MCHC 36.4 % (32.0-36.0); MCV 89 fL (80-95); MPV 8.8 fL (8.0-11.0); Monocytes % 9.7; Neutrophils % 56.3; Platelet Count 152 10^3/uL (130-400); RBC 4.73 10^6/uL (4.36-5.78); RDW 12.8 % (11.8-14.1); RDW-SD 41.6 fL; WBC 5.57 10^3/uL (4.4-10.8)
[2022-10-09] MEDS: Meclizine 25 MG TAB PO (11:51)
[2022-10-09] MEDS: Ondansetron 4 MG/2 ML VIAL IVP (11:52)
[2022-10-09 12:09] LABS: ALT 32 U/L (16-63); AST 27 U/L (15-37); Albumin 4.1 g/dL (3.4-5.0); Alkaline Phosphatase 94 U/L (46-116); Anion Gap 9.6 mmol/L (3-11); BUN 13 mg/dL (7-18); Bilirubin, Total 0.8 mg/dL (0.2-1.0); CO2 25.4 mmol/L (21.0-32.0); Calcium 9.6 mg/dL (8.5-10.1); Chloride 103 mmol/L (98-107); Estimated GFR 83.01 (mL/min/1.73m2); Glucose 124 mg/dL (74-106); Magnesium 1.6 mg/dL (1.8-2.4); Sodium 138 mmol/L (136-145); Total Protein 7.6 g/dL (6.4-8.2); Troponin I < 50 ng/L (<or=60)
[2022-10-09 12:11] LABS: Potassium 3.3 mmol/L (3.5-5.1)
== END 2022-10-09 14:29 | disposition home or self-care (01) ==
PROVIDERS: Emergency Provider Emergency Medicine Emergency Medical Services; PCP Nurse Practitioner Family
DX: H81.10 Benign paroxysmal vertigo, unspecified ear (principal)
CPT/HCPCS: 36415; 80053; 93005; 96361; 96374; 99284; 70450; 83735; 84484; 85025; 93010; J2405

== ENCOUNTER 2023-02-16 03:29 | Outpatient (CLI) | payer MEDICARE, SELFPAY ==
[2023-02-16 12:45] LABS: Hemoglobin A1C 5.5 % (<5.7)
[2023-02-16 12:49] LABS: ALT 32 U/L (16-63); AST 22 U/L (15-37); Albumin 3.9 g/dL (3.4-5.0); Alkaline Phosphatase 84 U/L (46-116); Anion Gap 6.9 mmol/L (3-11); BUN 13 mg/dL (7-18); Bilirubin, Total 0.7 mg/dL (0.2-1.0); CO2 28.1 mmol/L (21.0-32.0); Calcium 9.6 mg/dL (8.5-10.1); Calculated LDL 67 mg/dL (<100); Chloride 103 mmol/L (98-107); Cholesterol 139 mg/dL (<200); Estimated GFR 83.01 (mL/min/1.73m2); Glucose 95 mg/dL (74-106); HDL Cholesterol 48 mg/dL (40-60); Sodium 138 mmol/L (136-145); Total Protein 7.3 g/dL (6.4-8.2); Triglyceride 124 mg/dL (<150)
== END 2023-02-16 03:30 | disposition home or self-care (01) ==
LOC: LOS 03:29
PROVIDERS: PCP Nurse Practitioner Family; Visit Provider Nurse Practitioner Family
DX: R73.9 Hyperglycemia, unspecified (principal); I10 Essential (primary) hypertension; E78.5 Hyperlipidemia, unspecified
CPT/HCPCS: 36415; 80053; 80061; 83036

== ENCOUNTER → 2023-02-22 02:11 | Outpatient (CLI) | payer MEDICARE, SELFPAY ==
--- NOTE | 2023-02-22 06:45 | DI.US_ITS ---
Exam(s) US AAA SCREENING EXAM: US AAA SCREENING CLINICAL HISTORY: screening for aaa, smoker, f17.200 COMPARISON: US US ABDOMEN from 06/17/[address] ABDOMEN PELVIS WO from 07/29/2021 FINDINGS: AORTA: There is no evidence of significant abdominal aortic aneurysm. Maximum diameter of the aorta is 2.4 cm proximally and the aorta tapers normally. COMMON ILIAC ARTERIES: Mildly ectatic but without focal aneurysms. IMPRESSION: No evidence of abdominal aortic aneurysm. DATA REPOSITORY:
== END ==
PROVIDERS: PCP Nurse Practitioner Family; Visit Provider Nurse Practitioner Family
DX: F17.200 Nicotine dependence, unspecified, uncomplicated (principal); Z13.6 Encounter for screening for cardiovascular disorders
CPT/HCPCS: 76706

== ENCOUNTER 2024-02-18 15:40 | Outpatient (REF) | payer MEDICARE, SELFPAY ==
[2024-02-18 12:39] LABS: ALT 35 U/L (16-63); AST 22 U/L (15-37); Albumin 4.4 g/dL (3.4-5.0); Alkaline Phosphatase 88 U/L (46-116); Anion Gap 8.1 mmol/L (3-11); BUN 19 mg/dL (7-18); Bilirubin, Total 0.74 mg/dL (0.2-1.0); CO2 28.9 mmol/L (21.0-32.0); Calcium 9.8 mg/dL (8.5-10.1); Calculated LDL 84 mg/dL (<100); Chloride 103 mmol/L (98-107); Cholesterol 160 mg/dL (<200); Estimated GFR 82.49 (mL/min/1.73m2); Glucose 70 mg/dL (74-106); HDL Cholesterol 54 mg/dL (40-60); Potassium 4.4 mmol/L (3.5-5.1); Sodium 140 mmol/L (136-145); Total Protein 7.6 g/dL (6.4-8.2); Triglyceride 112 mg/dL (<150)
[2024-02-18 18:28] LABS: PSA, Screening 0.5 ng/mL (<=4.5)
[2024-02-18 19:11] LABS: HIV-1/2 Ag & Ab Screen Negative (Negative)
[2024-02-18 19:33] LABS: Hepatitis C Ab w Rflx HCV PCR Reactive (Negative)
[2024-02-20 14:15] LABS: HCV RNA Qualitative Undetected (Undetected)
== END 2024-02-18 15:41 | disposition home or self-care (01) ==
LOC: LBN 15:40
PROVIDERS: PCP Nurse Practitioner Family; Visit Provider Nurse Practitioner Family
DX: E78.5 Hyperlipidemia, unspecified (principal); Z11.4 Encounter for screening for human immunodeficiency virus [HIV]; Z12.5 Encounter for screening for malignant neoplasm of prostate; Z11.59 Encounter for screening for other viral diseases
CPT/HCPCS: 80053; 80061; 84153; 86803; 87389; 87522

== ENCOUNTER 2024-02-26 01:04 | Outpatient (CLI) | payer MEDICARE, MEDICAID, SELFPAY ==
--- NOTE | 2024-02-26 09:00 | DI.US_ITS ---
Exam(s) US ABDOMEN EXAM: US ABDOMEN CLINICAL HISTORY: chronic LUQ pain,epigastric pain,r10.13,r10.12 TECHNIQUE: Ultrasound of complete upper abdomen performed using standard protocol. COMPARISON: CT CT ABDOMEN PELVIS WO from 07/29/2021 US US AAA SCREENING from 02/22/2023 FINDINGS: There is no ascites evident. LIVER: There are no hepatic lesions evident nor obvious dilatation of intrahepatic ducts. GALLBLADDER/BILIARY: There are no gallstones. No gallbladder wall edema nor pericholecystic fluid. The common hepatic duct isnot dilated, measuring 5mm at the level of conor hepatis. PANCREAS: There is no evidence of pancreatic mass nor dilatation of the pancreatic duct. SPLEEN: The spleen is not enlarged and there are no intrasplenic lesions evident. KIDNEYS:Kidneys exhibit normal size with no evidence of solid mass, calculus, nor hydronephrosis. No cortical cysts evident. ABDOMINAL AORTA: There is no evidence of abdominal aortic aneurysm. IVC: Normal diameter where visualized. IMPRESSION: 1. No evidence of cholelithiasis nor dilatation of the biliary tree. 2. No other significant ultrasound findings in the upper abdomen. 3. No focal ultrasound findings in the left upper quadrant which is apparently area of clinical conc lorenzo There is no ascites DATA REPOSITORY:
== END 2024-02-26 01:24 ==
PROVIDERS: PCP Nurse Practitioner Family; Visit Provider Emergency Medicine
DX: R10.13 Epigastric pain (principal)
CPT/HCPCS: 76700

== ENCOUNTER 2024-04-10 02:13 | Outpatient (CLI) | payer MEDICARE, MEDICAID, SELFPAY ==
--- NOTE | 2024-04-10 06:30 | DI.CT_ITS ---
Exam(s) CT ABDOMEN PELVIS W EXAM: CT ABDOMEN PELVIS W CLINICAL HISTORY: worsening sx, neg US,luq abd pain,r10.12. TECHNIQUE: Imaging Protocol: Axial computed tomography images with coronal and sagittal reformatted images were created and reviewed CONTRAST MATERIAL: Intravenous: Omnipaque-350 80cc Oral: Yes. Oral contrast was also administered for bowel opacification. COMPARISON: CT ABD PELVIS WITH CONTRAST from 06/12/[address] ABDOMEN PELVIS WO from 07/29/2021 FINDINGS: VISUALIZED LUNG BASES: No nodules nor pleural effusions evident. Benign-appearing increased markings in the right middle lobe unchanged from previous. ABDOMEN: There is no ascites. LIVER: There is a small cyst in the right hepatic lobe measuring 0.7 cm, unchanged from 2017. Does n ot require further workup. No other focal findings in the liver. No dilated intrahepatic ducts. GALLBLADDER/BILIARY: No obvious gallbladder pathology. CBD is not dilated. PANCREAS: No evidence of pancreatic mass nor dilatation of the pancreatic duct. SPLEEN: Spleen is not enlarged. No obvious intrasplenic lesions. Splenic and portal veins are paten t. ADRENALS: There are no significant adrenal masses. KIDNEYS:No cysts evident. No solid renal masses. No calculi nor hydronephrosis.. ABDOMINAL AORTA: Abdominal aorta is not enlarged. LYMPH NODES:There is no retroperitoneal nor paraaortic adenopathy. ABDOMINAL WALL: There are bilateral inguinal hernias. On the right side there are knee a sac contain s some nonobstructed and non edematous appearing small bowel loops, more so than previous.. GI: There is no evidence of bowel obstruction, free air, nor abscess. The administered oral contrast has reached the level of the rectum. No bowel obstruction PELVIS: GI: The appendix is surgically absent (2021).No evidence of sigmoid diverticulitis. LYMPH NODES: There is no intrapelvic nor inguinal adenopathy. REPRODUCTIVE: Prostate size normal. Seminal vesicles unremarkable. URINARY BLADDER: Mild uniform thickening of the bladder wall is most probably related to under disten alfie. No obvious masses nor intraluminal calculi. The pelvic ureters are not dilated. OSSEOUS: No fractures and no significant osseous lesions. IMPRESSION: 1. Bilateral inguinal hernias. On the right side the hernia sac contains non -edematous small bowel loops. No evidence of bowel obstruction. 2. Appendix is surgically absent. RADIATION DOSE DELIVERED: 462.83mGy.cm Total DLP DATA REPOSITORY: All CT scans at this facility are submitted to the National Radiology Data Registry (NRDR) Dose Index Registry (DIR) with the [employer] (ACR). RADIATION OPTIMIZATION: All CT scans at this facility use at least one of these dose optimization te chniques: automated exposure control; mA and/or kV adjustment per patient size (includes targeted exa ms where dose is matched to clinical indication); or iterative reconstruction.
[2024-04-10 07:48] LABS: CREATININE 1.1 mg/dL (0.70-1.30); Estimated GFR 73.58 (mL/min/1.73m2)
[2024-04-10] MEDS: Barium Sulfate 2% W/V-Berry Smoothie 450 ML BTL PO ×2 (08:21→08:22)
[2024-04-10] MEDS: Omnipaque 350 MG/ML 100 ML BTL IJ (09:29)
[2024-04-10] MEDS: Normal Saline - Diluent 50 ML VIAL IJ (09:30)
== END 2024-04-10 02:33 ==
LOC: DI 02:13
PROVIDERS: PCP Nurse Practitioner Family; Visit Provider Nurse Practitioner Family
DX: K40.21 Bilateral inguinal hernia, without obstruction or gangrene, recurrent
CPT/HCPCS: 74177; 82565; J3490

== ENCOUNTER → 2024-05-12 08:44 | Outpatient (BNVA) | payer MEDICARE, MEDICAID, SELFPAY | PROVIDERS: PCP Nurse Practitioner Family; Referring Provider Nurse Practitioner Family; Visit Provider Surgery | DX: K46.9 Unspecified abdominal hernia without obstruction or gangrene (principal); K40.20 Bilateral inguinal hernia, without obstruction or gangrene, not specified as recurrent; K21.9 Gastro-esophageal reflux disease without esophagitis | CPT/HCPCS: 99214 ==

== ENCOUNTER → 2024-06-16 10:23 | Outpatient (BNVA) | payer MEDICARE, MEDICAID, SELFPAY | PROVIDERS: PCP Nurse Practitioner Family; Referring Provider Nurse Practitioner Family; Visit Provider Surgery | DX: R10.9 Unspecified abdominal pain (principal) | CPT/HCPCS: 99214 ==

== ENCOUNTER 2024-07-16 13:30 | Outpatient (CLI) | payer MEDICARE, MEDICAID, SELFPAY ==
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
== END 2024-07-16 13:50 ==
LOC: DI 13:32
PROVIDERS: PCP Nurse Practitioner Family; Visit Provider Physician Assistant
DX: V89.2XXA Person injured in unspecified motor-vehicle accident, traffic, initial encounter (principal); M25.551 Pain in right hip; M54.9 Dorsalgia, unspecified
CPT/HCPCS: 72110; 73502

== ENCOUNTER → 2024-08-07 12:44 | Outpatient (BNVA) | payer MEDICARE, MEDICAID, SELFPAY | PROVIDERS: PCP Nurse Practitioner Family; Visit Provider Surgery | DX: R10.12 Left upper quadrant pain (principal); K40.20 Bilateral inguinal hernia, without obstruction or gangrene, not specified as recurrent | CPT/HCPCS: 99214 ==

== ENCOUNTER 2024-10-06 05:56 | Day surgery (SDC) | payer MEDICARE, MEDICAID, SELFPAY ==
--- NOTE | 2024-10-05 14:29 | W.PM.DSUDISC ---
Date of service: 10/06/24 Discharge Plan Disposition Patient Disposition: Home Condition: Good Discharge Details Reason For Visit: colonoscopy Attending Provider: Pete Madera Primary Care Provider: Dusty Baker Home Meds and New Rx's Prescriptions: Continued (DME) Aerochamber MV Spacer See Rx Instructions .Route Qty: 1 0RF Rx Instructions: As directed ibuprofen 200 mg capsule 400 mg PO Q6H PRN cyclobenzaprine 10 mg tablet 10 mg PO HS PRN (Reason: muscle spasm) Qty: 7 0RF albuterol sulfate 90 mcg/actuation HFA aerosol inhaler 2 puff inhalation Q6H PRN (Reason: shortness of breath or wheezing) Qty: 6.7 0RF simvastatin 20 mg tablet 20 mg PO DAILY Qty: 90 3RF fluoxetine 20 mg capsule 20 mg PO DAILY Qty: 90 4RF Rx Instructions: dose decrease Discontinued bisacodyl 5 mg tablet,delayed release (DR/EC) 5 mg PO ONCE Qty: 4 0RF Rx Instructions: Per Colonoscopy bowel prep instructions polyethylene glycol 3350 17 gram/dose powder 238 g PO ONCE Qty: 238 0RF Rx Instructions: For Colonoscopy bowel prep, as directed by office Discharge Instructions Additional Instructions: Eddie, it was very nice meeting you today, and I hope you feel well after the procedure. Things went very smoothly. Your prep was outstanding, we could see everything fine. I did not see anything out of the ordinary with regards to the entire length of your large intestine. There are no polyps, tumors, or other signs of any signs of worrisome inflammation. You do not have Crohn's disease or ulcerative colitis, at least by evidence of today's colonoscopy. I do recommend another colonoscopy in 10 years to reduce the likelihood of colon cancer over the course of your lifetime. 1. If tolerated, consume a soft, low fiber diet for 1-2 days. 2[address] Do not drive, drink alcohol, operate machinery, make critical decisions, or do activities that require coordination or balance for 24 hours. 3. Because air was put into your colon during the procedure, expelling air from your rectum (passing gas or farting) is normal. 4. You may not have a bowel movement for 1-3 days because of the colonoscopy prep. This is normal. 5. Go directly to the emergency room if you notice any of the following: Develop chills (warm to touch), or if you have a thermometer and your temperature is above 101 Difficulty breathing or difficultly swallowing Persistent vomiting Severe abdominal pain, other than gas cramps Severe chest pain Black, tarry stools Any bleeding ? exceeding one tablespoon 6. Call your physician if the site where your intravenous was started becomes red, swollen, painful, and warm to touch. 7. Your physician has reviewed your pre-procedure medications. Please continue to take those medications as previously ordered. You will be given specific information/education regarding any changes to your medications before leaving. Stand Alone Forms: Anesthesia Discharge Inst., Colonoscopy Post Instructions, Chela Spivey (DSU) Activity:: Activity as Tolerated Diet:: As Tolerated Discharge Orders Discharge Orders: Discharge Order (Routine); Ordered 10/05/24 Ordered By: Pete Madera DS: Diagnosis Discharge Diagnosis (1) Encounter for diagnostic colonoscopy due to change in bowel habits: Status: Acute Asessment and Plan: Negative colonoscopy
--- NOTE | 2024-10-05 14:30 | HPE_ITS ---
Assessment and Plan Assessment and plan (1) Encounter for diagnostic colonoscopy due to change in bowel habits: Status: Acute Assessment and plan: I reviewed Eddie's history, and the details described by of his office visit with Dr. Bennett. Since then, there have been no major changes with regards to the interval history. I explained the risks and the benefits of the procedure to Eddie, and I think he is able to understand it, and provide informed consent today. We can proceed with colonoscopy as planned. History of Present Illness History of Present Illness Chief Complaint: Anemia with left upper qudrant pain Narrative: Patient is seen in follow up after a visit in May 2024.At that time EGD was recommended but not done. He still c/o pain on the left side after he eats, also occurs if skiing real hard. When the same pain started 5 years ago it was always after physical activity such as skiing. He is taking pantoprazole. Other symptoms includes that his stooling has become very urgent and at times he is soiling his underwear. There is no family history of colon cancer. He has some back problems but never had back surgery. Recent lumbar plain films show mild degenerative changes. Since his last office encounter with Dr. Bennett, there have been no major changes with regards to the interval history. He does state that he feels a little better this morning after the bowel prep. [facility] All Active Problems Encounter for diagnostic colonoscopy due to change in bowel habits (Acute) Abdominal pain, left upper quadrant (Acute) Chronic GERD (Acute) Bilateral inguinal hernia without obstruction or gangrene (Acute) Seborrheic keratoses, inflamed (Acute) Medicare annual wellness visit, initial (Acute) Morning headache (Acute) Snoring (Acute) Essential hypertension (Acute 03/25/13) Seasonal allergies (Acute) Hyperlipidemia (Acute) Heart murmur (Acute) Depressive disorder (Acute) panic response Medical History Hyperglycemia Chronic right hip pain Retinal detachment of left eye due to tear of retina repaired 01/2021 Erectile dysfunction Tick bite Skin rash Alcohol intake above recommended sensible limits quit in 1999 Closed fracture of lower leg Smoker quit 2009 Viral hepatitis C treated age 56- Interferon Nuclear sclerotic cataract of right eye Posterior subcapsular age-related cataract, right eye Drusen of optic disc, right eye Drusen of optic disc, left eye Surgical History Status post cataract extraction and insertion of intraocular lens of right eye Status post cataract extraction and insertion of intraocular lens of left eye (03/11/18) History of hip surgery 1977 S/P appendectomy (06/21/16) 2017 Appendectomy (06/12/16) laparascopic Family History Mother , 80 Depression Alcohol abuse Cancer Stroke Father Heart disease Hyperlipidemia Asthma Cancer Diabetes Brother Depression Hypertension Brother , age 59 Diabetes Alcohol abuse Depression Social History Smoking/Tobacco Use Status: Former Tobacco Use Quit Date: 05/21/11 Tobacco: How many years used: 12 Second Hand Exposure: Yes Smoking risk assessment performed?: Yes Alcohol Intake: former Drug use: Never Substance use type: does not use Adopted: No Caregiver/Support person: No Household members: friend(s) Housing: house Communication Needs: None Education Level: college Details: 14th grade Do you need help understanding health information?: Rarely current occupation: Retired Pets and animals: Yes Pets and animals: dog(s) Sexually active: Yes Do you think of yourself as: straight/heterosexual Current gender identity: male What is your relationship status?: How often do you talk on the phone with friends or family?: three or more times per week How often do you get together with friends or relatives?: three or more times per week How often do you attend protestant or roman catholic services?: decline to answer Do you belong to any clubs or organized social groups?: yes Panel score (0-1 are the most socially isolated patients): 2 What type of physical activity do you participate in: walking and swimming Duration: 45-60 minutes/day Frequency: 5-6 times per week Belinda/Adventist: Shinto Special belinda needs: No Seatbelt use: always Helmet use: No Drive intox or ride w/intox special education bus driver: No Firearms in home: No Victim of physical abuse: No Victim of emotional abuse: No Victim of sexual abuse: No Would you like helpful sources: Yes Additional Social history: [employer] Meds Allergies and Home Medications Allergies Allergy/AdvReac Type Severity Reaction Status Date / Time Penicillins Allergy Severe Anaphylaxis Verified 10/06/24 06:17 aspirin AdvReac Severe GI upset, Verified 10/06/24 06:17 pt reports had hep was told not to take Home Medications ?Medication ?Instructions ?Recorded ?Confirmed ?Type inhalational spacing device #1 ea 06/25/23 09/30/24 Rx (Aerochamber MV spacer) ibuprofen 200 mg capsule 400 mg PO Q6H PRN 05/12/24 10/03/24 History albuterol sulfate 90 mcg/actuation 2 puff inhalation Q6H PRN 05/28/24 10/06/24 Rx aerosol inhaler shortness of breath or wheezing #6.7 grams cyclobenzaprine 10 mg tablet 10 mg PO HS PRN muscle spasm #7 07/16/24 10/03/24 Rx tabs fluoxetine 20 mg capsule 20 mg PO DAILY #90 caps 08/28/24 10/06/24 Rx simvastatin 20 mg tablet 20 mg PO DAILY #90 tabs 08/28/24 10/06/24 Rx Exam Const General: cooperative, healthy appearing and not in acute distress Neck Neck: normal visual inspection, no lymphadenopathy and supple Resp Effort & Inspection: normal respiratory effort Auscultation: clear to auscultation bilaterally Cardio Jugular venous pressure: no JVD Rate: regular rate Rhythm: regular rhythm Heart Sounds: S1 normal and S2 normal GI Inspection: normal to inspection Palpation: soft, no guarding and nontender Percussion: normal to percussion Auscultation: normal bowel sounds Neuro General: patient alert, patient awake and patient oriented x3 Psych Appearance: grossly normal
--- NOTE | 2024-10-05 14:32 | W.COLOREPORT ---
Date of service: 10/06/24 Time of Service: 08:00 Colonoscopy Report Date of procedure: 10/06/24 Pre-op diagnosis general: Anemia Post-op diagnosis procedure note: other (Normal colonoscopy) Procedure: colonoscopy Surgeon: Pete Madera Anesthesia Type: General:No Airway Estimated blood loss (mL): 0 Pathology: none sent Complications: None Disposition: same day Indications: Patient is seen in follow up after a visit in May 2024.At that time EGD was recommended but not done. He still c/o pain on the left side after he eats, also occurs if skiing real hard. When the same pain started 5 years ago it was always after physical activity such as skiing. He is taking pantoprazole. Other symptoms includes that his stooling has become very urgent and at times he is soiling his underwear. There is no family history of colon cancer. He has some back problems but never had back surgery. Recent lumbar plain films show mild degenerative changes. Prep: Miralax/Dulcolax Procedure Start Time: 07:32 Procedure End Time: 07:43 Retraction Time: 5 Findings: Normal colonoscopy Procedure Description: After the induction of anesthesia, and with the patient in left lateral decubitus position, I began by performing an external anorectal exam.? Perineum and skin were normal, as was the anal verge.? There was no evidence of external hemorrhoids.? Next, I performed a digital rectal exam.? I did not appreciate any abnormal findings.? Next, I advanced a colonoscope into the rectal vault.? I performed retroflexion.? This appeared normal. Using insufflation, I then advanced the colonoscope beyond the rectal folds and into the sigmoid colon before advancing towards the cecum.? The quality of the prep was outstanding.? The scope was noted to be in the cecum by identification of the ileocecal valve and appendiceal orifice.? I then began withdrawing the colonoscope using repeated irrigation as necessary for full evaluation of the colonic mucosa. ?Once the scope was withdrawn to the level of the rectum, great care was taken to examine portions of the rectal folds.? I did not see any signs of polyps, tumors, or any inflammation that would be consistent with ulcerative colitis or Crohn's disease. I did not see any signs of any vascular malformations. Finally, the scope was withdrawn and the patient was brought to the same-day surgery recovery unit as the anesthetic wore off. ?The findings and instructions were shared with the patient prior to discharge. [place] Bowel Prep [place] Bowel Prep Right Colon: 3 Left Colon: 3 Transverse Colon: 3 Total Score: 9
[2024-10-06 06:18] VITALS: BP 132/89; PULSE 60; RESP 18; TEMP 36.5; O2SAT 96
[2024-10-06] MEDS: Lactated Ringers 1,000 ML 80 ML IV (06:36)
--- NOTE | 2024-10-06 07:15 | W.ANESPRE ---
General Info Date of Service Date Performed: 10/06/24 Height: 5 ft 9 in Weight: 94 kg Body Mass Index (BMI): 30.6 Surgical Procedure: Operation Date: 10/06/24 07:35 Proposed Procedure Side Surgeon shakeel Madera MD Meds Allergies and Home Medications Allergies Allergy/AdvReac Type Severity Reaction Status Date / Time Penicillins Allergy Severe Anaphylaxis Verified 10/06/24 06:17 aspirin AdvReac Severe GI upset, Verified 10/06/24 06:17 pt reports had hep was told not to take Home Medication ?Medication ?Instructions ?Recorded inhalational spacing device #1 ea 06/25/23 (Aerochamber MV spacer) ibuprofen 200 mg capsule 400 mg PO Q6H PRN 05/12/24 albuterol sulfate 90 mcg/actuation 2 puff inhalation Q6H PRN 05/28/24 aerosol inhaler shortness of breath or wheezing #6.7 grams cyclobenzaprine 10 mg tablet 10 mg PO HS PRN muscle spasm #7 07/16/24 tabs fluoxetine 20 mg capsule 20 mg PO DAILY #90 caps 08/28/24 simvastatin 20 mg tablet 20 mg PO DAILY #90 tabs 08/28/24 Current Visit Medications: Current Medications Generic Name Dose Route Start Last Admin Trade Name Freq PRN Reason Stop Dose Admin Ringer's Solution 1,000 mls @ 80 mls/hr 10/06/24 06:00 10/06/24 06:36 IV 10/06/24 23:59 80 mls/hr INFUSION KIMMIE Administration IV Miscellaneous Supplies 1 each 10/06/24 06:00 Iv Access IV 10/06/24 23:59 DIRECTED KIMMIE Ondansetron HCl 4 mg 10/05/24 14:33 Ondansetron 4 Mg/2 Ml Vial IVP 11/04/24 14:32 Q4H PRN PRN Nausea / Vomiting Sodium Chloride 0 ml 10/06/24 06:00 Normal Saline Flush 10 Ml Syr IV 10/06/24 23:59 PRN PRN Sodium Chloride 0 ml 10/06/24 06:00 Normal Saline 10 Ml Vial IJ 10/06/24 23:59 DIRECTED PRN Sterile Water 0 ml 10/06/24 06:00 Water,Injection,Sterile 10 Ml Vial IJ 10/06/24 23:59 DIRECTED PRN PFSH Active Problems Active Problems: Problem Status Onset Code Encounter for diagnostic colonoscopy due to change in bowel habits Acute R19.4 Abdominal pain, left upper quadrant Acute R10.12 Chronic GERD Acute K21.9 Bilateral inguinal hernia without obstruction or gangrene Acute K40.20 Seborrheic keratoses, inflamed Acute L82.0 Medicare annual wellness visit, initial Acute Z00.00 Morning headache Acute R51.9 Snoring Acute R06.83 Essential hypertension Acute 03/25/13 I10 Seasonal allergies Acute J30.2 Hyperlipidemia Acute E78.5 Heart murmur Acute R01.1 Depressive disorder Acute F32.9 Medical History Medical History Hyperglycemia Chronic right hip pain Retinal detachment of left eye due to tear of retina repaired 01/2021 Erectile dysfunction Tick bite Skin rash Alcohol intake above recommended sensible limits quit in 1999 Closed fracture of lower leg Smoker quit 2009 Viral hepatitis C treated age 56- Interferon Nuclear sclerotic cataract of right eye Posterior subcapsular age-related cataract, right eye Drusen of optic disc, right eye Drusen of optic disc, left eye Surgical History Surgical History Status post cataract extraction and insertion of intraocular lens of right eye Status post cataract extraction and insertion of intraocular lens of left eye (03/11/18) History of hip surgery 1976 S/P appendectomy (06/21/16) 2017 Appendectomy (06/12/16) laparascopic Tobacco Smoking/Tobacco Use Status: Former Tobacco Use Passive smoking exposure: Yes Second hand exposure: Yes Alcohol Alcohol Intake: former Substance Use Substance use: Never Substance use type: does not use Vital Signs and Lab Results Vital Signs Most Recent Vital Signs in EMR: Most Recent Vital Signs Temp Pulse Resp BP Pulse Ox 36.5 C 60 18 132/89 96 10/06/24 06:18 10/06/24 06:18 10/06/24 06:18 10/06/24 06:18 10/06/24 06:18 Lab Results Blood Type / Crossmatch: No Data to Display Complete Blood Count: No Data to Display Complete Metabolic Panel: No Data to Display Liver Function Panel: No Data to Display Coagulation Panel: No Data to Display Cardiac Panel: No Data to Display Arterial Blood Gas: No Data to Display Venous Blood Gas: No Data to Display Pancreas Panel: No Data to Display Thyroid Panel: No Data to Display Infectious Disease: No Data to Display Blood Cultures: No Data to Display Toxicology Panel: No Data to Display Imaging and Studies Imaging and Studies Study information below may be from another EMR and interpreted by another provider. Please see original notes in EMR for more complete details. EKG Summary: 10/09/22 Conclusion Sinus rhythm...normal P axis, V-rate 60- 99 Nonspecific intraventricular conduction delay...QRSd >115mS, not LBBB/RBBB Stress Test Summary: 08/16/18 negative for ischemia Anesthesia Assessment and Plan Anesthesia History Personal History: No History of Anesthesia Complications Family History: No Family History of Anesthesia Complications Exercise Tolerance Exercise Tolerance: Metabolic Equivalents>4 Pertinent Negatives Pertinent Negatives: No Major Cardiovascular Symptoms or Complaints and No Major Pulmonary Symptoms or Complaints Cardiac & Pulmonary Exam Cardiac Exam: Normal S1/S2 Heart Sounds Pulmonary Exam: Clear Bilateral Breath Sounds Implantable Cardiac Device Does patient have a Pacemaker or an ICD?: No Airway Exam Known Difficult Airway: No Mallampati Class: 3 Mouth Opening: Normal (> 3cm) Thyromental Distance: Greater than 3 cm Neck Range of Motion: Full ROM Neck Circumference: Normal Teeth Condition: Normal Dentition ASA Classification ASA Score: ASA 2 Emergency Case?: No NPO Status NPO Status: NPO Clears >2 hours, Solids >8 hours Anesthesia Plan Resuscitation Status: Full Code Anesthesia Technique: General Anesthesia Airway Planned: Natural Airway Monitors Used: Standard Monitors Preoperative Comments:: Rare inhaler use
[2024-10-06 07:20] VITALS: BMI 30.6
[2024-10-06 07:58] VITALS: BP 111/67; PULSE 54; RESP 18; TEMP 36.4; O2SAT 94
--- NOTE | 2024-10-06 08:06 | W.ANESPOSTOP ---
Postoperative Evaluation Date, Time and Location Date Performed: 10/06/24 Time Performed: 08:06 Patient Location: Day Surgery Unit Vital Signs Most Recent Imported Vital Signs: Most Recent Vital Signs Temp Pulse Resp BP Pulse Ox 36.4 C L 54 L 18 111/67 94 10/06/24 07:58 10/06/24 07:58 10/06/24 07:58 10/06/24 07:58 10/06/24 07:58 Pain Score Most Recent Pain Score: Most Recent Pain Score Pain Level 0 10/06/24 07:58 Assessment Mental Status: Awake (Alert & Oriented to Patient Baseline) Airway and Respiratory Function: Patent airway with normal (patient baseline) respiratory exam Cardiovascular Function: Hemodynamically Stable Hydration Status: Adequately Hydrated Nausea & Vomiting: No Nausea or Vomiting Pain: Pt. Denies Any Pain Peripheral Nerve Block: Patient did not receive a nerve block
[2024-10-06 08:25] VITALS: BP 133/83; PULSE 59; RESP 18; TEMP 36.6; O2SAT 97
== END 2024-10-06 08:40 | disposition home or self-care (01) ==
LOC: SUR 05:57
PROVIDERS: PCP Nurse Practitioner Family; Visit Provider Surgery
PROC: 0DJD8ZZ Inspection of Lower Intestinal Tract, Via Natural or Artificial Opening Endoscopic (ICD-10-PCS; CPT 45378; principal; 2024-10-06 07:30)
DX: R19.4 Change in bowel habit (principal); D64.9 Anemia, unspecified
CPT/HCPCS: 45378; J2003; J2704

== ENCOUNTER 2025-02-18 10:27 | Outpatient (CLI) | payer MEDICARE, MEDICAID, SELFPAY ==
[2025-02-18 14:19] LABS: ALT 31 U/L (16-63); AST 20 U/L (15-37); Albumin 4.3 g/dL (3.4-5.0); Alkaline Phosphatase 84 U/L (46-116); Anion Gap 5.2 mmol/L (3-11); BUN 15 mg/dL (7-18); Bilirubin, Total 0.9 mg/dL (0.2-1.0); CO2 30.8 mmol/L (21.0-32.0); Calcium 9.4 mg/dL (8.5-10.1); Calculated LDL 86 mg/dL (<100); Chloride 103 mmol/L (98-107); Cholesterol 171 mg/dL (<200); Estimated GFR 93.03 (mL/min/1.73m2); Glucose 98 mg/dL (74-106); HDL Cholesterol 46 mg/dL (>or=40); Potassium 4.3 mmol/L (3.5-5.1); Sodium 139 mmol/L (136-145); Total Protein 7.6 g/dL (6.4-8.2); Triglyceride 195 mg/dL (<150)
[2025-02-18 23:12] LABS: PSA, Screening 0.5 ng/mL (<=4.5)
[2025-02-18 23:40] LABS: HBs Antibody, Quant 29.5 mIU/mL (See Note); Hepatitis B Surface Antigen Negative (Negative)
== END 2025-02-18 10:28 | disposition home or self-care (01) ==
LOC: LOS 10:28
PROVIDERS: PCP Nurse Practitioner Family; Visit Provider Nurse Practitioner Family
DX: E78.5 Hyperlipidemia, unspecified (principal); Z12.5 Encounter for screening for malignant neoplasm of prostate; Z11.59 Encounter for screening for other viral diseases
CPT/HCPCS: 36415; 80053; 80061; 84153; 86704; 86706; 87340